=== PATIENT | male | born 1955 | race Caucasian/White ===

== ENCOUNTER 2023-07-28 11:08 | Outpatient (OUT) | payer MEDICARE, BC, SELFPAY ==
[2023-07-28 12:27] LABS: Prostate Specific Antigen Dx 1.49 ng/mL (<=4.00)
== END 2023-07-28 11:09 | disposition home or self-care (01) ==
LOC: LAB 11:11
PROVIDERS: PCP Family Medicine; Visit Provider Urology
DX: N40.1 Benign prostatic hyperplasia with lower urinary tract symptoms (principal); N41.9 Inflammatory disease of prostate, unspecified; R31.21 Asymptomatic microscopic hematuria
CPT/HCPCS: 36415; 84153

== ENCOUNTER 2023-09-22 07:59 | Outpatient (OUT) | payer MEDICARE, BC, SELFPAY ==
--- OUTSIDE RECORDS SUMMARY | 2023-09-22 08:05 | XMS_ITS | CCD ---
Author Organization [facility] [place] [facility] STE[employer] [facility] Care Team Providers Care Counseling Psychologist Name Role Phone Unavailable Primary Care Provider UnavailRODGER Howell Attending Unavailable Gerald Molina Unavailable KIMI CHEN Primary Care Physician FIFI, DR DANTE Hodge Admitting Unavailable FIFI, DR DANTE Hodge Attending Unavailable GUSTAVO, DR BOLDEN Primary Care Unavailable FIFI, DR DANTE Hodge Consulting Unavailable MISC, DR DEVRIES Admitting Unavailable MISC, DR DEVRIES Attending Unavailable GERALD MOLINA Primary Care Unavailable GUSTAVO, DR BOLDEN Consulting Unavailable SEAN GIMENEZ Consulting Unavailable GERALD MOLINA Consulting Unavailable BREEZY, DR IVETT Reyes Admitting Unavailable HEMMER, DR IVETT Reyes Attending Unavailable GERALD MOLINA Primary Care Unavailable HEMMER, DR IVETT Reyes Consulting Unavailable ANAHI SHORT Admitting Unavailable ANAHI SHORT Attending Unavailable GUSTAVO, DR BOLDEN Primary Care Unavailable CANDELARIA LOPEZ Consulting UnavailSean Gerber Consulting Unavailable Sebas Locke Unavailable Dante CALIX Attending Unavailable Dante CALIX Attending Unavailable KIMI CHEN Attending Unavailable RICHY CASTANEDA Attending Unavailable MARIAN MEHTA Attending Unavailable KIMI CHEN Attending Unavailable Allergies Allergy Classification Reported Allergen(s) Allergy Type Date of Onset Reaction(s) Facility (9 sources) predniSONE; Translations: [prednisone] Drug Allergy 2 GI Upset, Gastroesophageal reflux disease (disorder) [facility] Medications Current Medications Medication Drug Class(es) Dates Sig (Normalized) Sig (Original) aspirin 81 mg oral tablet (1 source) Platelet Aggregation Inhibitor, Nonsteroidal Anti-inflammatory Drug Start: 12-04-2018 take 1 tablet by mouth once daily aspirin 81 mg oral tablet 81 mg = 1 tab(s), Oral, Daily Start Date: 12/04/18 Status: Ordered atorvastatin 40 mg oral tablet (7 sources) HMG-CoA Reductase Inhibitor Start: 11-02-2021 atorvastatin 40 mg Tab Refills(s) 0 Start Date: 07/25/22 Status: Ordered Comment on above: Take 40 mg by mouth once daily. B-12 (2 sources) Start: 12-04-2018 B-12 Start Date: 12/04/18 Status: Ordered ciprofloxacin 500 mg oral tablet (1 source) Quinolone Antimicrobial Start: 11-13-2019 Cipro 500 mg Tab See Instructions, Take 1 tab day prior to procedure and 1 tab day of procdure - afterwards, # 2 tab(s), Refills(s) 0, Pharmacy: [facility]/pharmacy #[id number], 174, cm, 10/31/19 15:48:00 EDT, Height/Length Dosing, 77.5, kg, 10/31/19 15:48:00 EDT, Weight Dosing Start Date: 11/13/19 Status: Ordered Folic Acid (8 sources) Start: 12-04-2018 folic acid folic acid Start Date: 12/04/18 Status: Ordered take 1 tablet by mouth every oth er day Folic Acid 800 MCG 1 tablet Orally EVERY OTHER DAY Active take 1 tablet by mouth every oth er day Folic Acid 800 MCG 1 tablet Orally EVERY OTHER DAY Active take 1 capsule by mouth once jean ly folic acid 0.8 mg cap Take 1 capsule by mouth once daily. 0 Active Comment on above: Take 1 capsule by mo [facility] once daily. gabapentin 100 mg oral capsule (8 sources) Anti-epileptic Agent Start: 12-05-19 take 100 mg by mouth three times daily gabapentin 100 mg, Oral, TID Start Date: 12/04/18 Status: Ordered Comment on above: Take 100 mg by mouth three times daily. hydroCHLOROthiazide / Lisinopril (8 sources) Thiazide Diuretic, Angiotensin Converting Enzyme Inhibitor Start: 11-12-19 hydrochlorothiazid e-lisinopril 12.5 mg-10 mg oral tablet 1 tab(s), Oral, Refill(s) 0 Start Date: 11/12/19 Status: Ordered take 0.5 tablet by m outh once daily Lisinopril-hydroCHLOROthiazide 10-12.5 M G 1/2 TABLET Orally Once a day Active take 0.5 tablet by m outh once daily LISINOPRIL-HYDROCHLOROTHIAZIDE ORAL Take 10-12.5 mg by mouth once daily. 1/2 tablet 0 Active Comment on above: Take 10-12.5 mg by m outh once daily. 1/2 tablet Multivitamin preparation (5 sources) Multivitamin Act piter SITagliptin 100 mg oral tablet (8 sources) Dipeptidyl Peptidase 4 Inhibitor Start: 9 take 100 mg by mouth once daily Januvia 100 mg, Oral, Daily Start Date: 12/04/18 Status: Ordered Comment on above: Take 100 mg by mouth once daily. tamsulosin hydrochloride 0.4 mg oral capsule (8 sources) alpha-Adrenergic Brenda Start: 4 take 1 capsule by mouth twice daily tamsulosin 0.4 mg Cap 0.4 mg = 1 cap(s), Oral, BID, # 60 cap(s), Refills(s) 11, Pharmacy: [facility]/pharmacy #[id number], 174, cm, 07/25/22 8:56:00 EDT, Height/Length Dosing, 78, kg, 07/25/22 8:56:00 EDT, Weight Dosing Start Date: 05/01/23 Status: Ordered Start: 04-20-2022 take 1 capsule by pr uth twice daily tamsulosin 0.4 mg Cap 0.4 mg = 1 cap(s), Oral, BID, # 60 cap(s), Refills(s) 11, Pharmacy: [facility]/pharmacy #[id number], 174, cm, 06/29/21 8:28:00 EDT, Height/Length Dosing, 78.3, kg, 06/29/21 8:28:00 EDT, Weight Dosing Start Date: 04/20/22 Status: Ordered take 0.8 mg by mouth once daily tamsulosin (FLOMAX) 0.4 mg Take 0.8 mg by mouth once daily. 0 Active Comment on above: Take 0.8 mg by mouth once daily. vitamin B12 (5 sources) Vitamin B12 Vitamin B 12 MAGGIE RY OTHER DAY Active Completed/Discontinued Medications Medication Drug Class(es) Dates Sig (Normalized) Sig (Original) bismuth subsalicylate (1 source) Bismuth bismuth subsalic ylate (PEPTO-BISMOL ORAL) Take by mouth as needed. 0 Active Comment on above: Take by mouth as nee ded. Calcium Carbonate (6 sources) Tums PRN Not-Taking/PRN Tums PRN Active calcium carbonat e (ANTACID EXT STR, CALCIUM CARB, ORAL) Take 1 tablet by mouth as needed. 0 Active Comment on above: Take 1 tablet by enrrique th as needed. famotidine 10 mg oral tablet (1 source) Histamine-2 Receptor Antagonist take 1 tablet by mouth every twelve hours as needed famotidine (PEPCID AC) 10 mg tablet Take 10 mg by mouth twice daily as needed. 0 Active Comment on above: Take 10 mg by mouth twice daily as needed. mecobalamin (1 source) Start: 9 take 1 tablet by mouth once daily mecobalamin (B12 ACTIVE ORAL) Take 1 tablet by mouth once daily. 0 12/04/2018 Active Comment on above: Take 1 tablet by enrrique th once daily. multivitamin,ther and minerals (MEN'S MULTIPLUS ORAL) (1 source) take 1 tablet by mouth once daily multivitamin,ther and minerals (MEN'S MULTIPLUS ORAL) Take 1 tablet by mouth once daily. 0 Active Comment on above: Take 1 tablet by enrrique th once daily. pantoprazole 40 mg delayed release oral tablet (8 sources) Proton Pump Inhibitor Start: 9 take 2 tablets by mouth once daily pantoprazole DR (PROTONIX) 40 mg tablet Take 80 mg by mouth once daily. 0 12/04/2018 Active Start: 12-04-2018 take 40 mg by mouth once daily pantoprazole 40 mg, Oral, Daily Start Date: 12/04/18 Status: Ordered take 1 tablet by enrrique th every twelve hours Pantoprazole Sodium 40 MG 1 tablet Orally twice a day for 90 days Active Comment on above: Take 80 mg by mouth once daily. Problems Active Problems Problem Classification Problem Date Documented Date Episodic/Chronic Abdominal pain (9 sources) Epigastric pain; Translations: [Inguinal pain] Onset: 01-06-2022 Episodic Administrative/socia l admission (1 source) Counseling procedure with explicit context; Translations: [Dietary counseling and surveillance] Episodic Diabetes mellitus without complication (1 source) Type 2 diabetes mellitus without complication; Translations: [Type 2 diabetes mellitus without complications] Chronic Diabetes mellitus without complication (2 sources) Prediabetes 12-04-2018 Episodic Epilepsy; convulsions (2 sources) Epilepsy 12-04-2018 Chronic Esophageal disorders (8 sources) Gastroesophageal reflux disease without esophagitis; Translations: [Gastro-esophageal reflux disease without esophagitis] Chronic Gastritis and duodenitis (5 sources) Gastritis; Translations: [Gastritis, unspecified, without bleeding] Episodic Genitourinary symptoms and ill-defined conditions (5 sources) Blood in urine; Translations: [Dysuria] Onset: 08-01-2023 12-04-2018 Episodic Hyperplasia of prostate (7 sources) Benign prostatic hypertrophy with outflow obstruction; Translations: [Benign prostatic hyperplasia with lower urinary tract symptoms] Onset: 07-13-2022 12-04-2018 Chronic Inflammatory conditions of male genital organs (3 sources) Epididymitis; Translations: [Prostatitis] 07-22-2019 Episodic Nonspecific chest pain (4 sources) Chest pain, unspecified; Translations: [CHEST PAIN UNSPECIFIED] Onset: 05-24-2022 Episodic Other aftercare (1 source) Long-term current use of oral hypoglycemic medication; Translations: [[facility] (current) use of oral hypoglycemic drugs] Episodic Other aftercare (1 source) [facility] (current) use of aspirin; Translations: [[facility] CURRENT USE OF ASPIRIN] Onset: 05-25-2022 Episodic Other aftercare (1 source) Other [place] (current[facility] drug therapy; Translations: [OTH HALF-WAY CURRENT DRUG THERAPY] Onset: 05-25-2022 Episodic Other disorders of stomach and duodenum (5 sources) Indigestion; Translations: [Functional dyspepsia] Episodic Other lower respiratory disease (1 source) Shortness of breath; Translations: [SHORTNESS OF BREATH] Onset: 05-25-2022 Episodic Other male genital disorders (1 source) H/O: male genital disorder; Translations: [Personal history of other diseases of male genital organs] Onset: 08-01-2023 Episodic Other male genital disorders (1 source) History of prostatitis 08-01-2023 Episodic Other screening for suspected conditions (not mental disorders or infectious disease) (2 sources) Raised prostate specific antigen 12-04-2018 Episodic Screening and history of mental health and substance abuse codes (1 source) Personal history of nicotine dependence; Translations: [PERSONAL HISTORY OF NICOTINE DEPEND] Onset: 05-25-2022 Episodic Unclassified (2 sources) Drug therapy finding 07-22-2019 Unclassified (1 source) PERSONAL HISTORY OF COVID-19; Translations: [PERSONAL HISTORY OF COVID-19] Onset: 05-25-2022 Unclassified (3 sources) CONTACT W/AND (SUSP) EXPOS COVID-19; Translations: [CONTACT W/AND (SUSP) EXPOS COVID-19] Onset: 04-06-2022 Unclassified (1 source) ACUTE COUGH; Translations: [ACUTE COUGH] Onset: 04-06-2022 Unclassified (1 source) Asymptomatic microscopic hematuria 07-25-2022 Past or Other Problems Problem Classification Problem Date Documented Da te Episodic/Chronic Nausea and vomiting (2 sources) Vomiting, unspecified; Translations: [VOMITING UNSPECIFIED] Onset: 01-10-2022 Episodic Other disorders of stomach and duodenum (2 sources) Functional dyspepsia; Translations: [FUNCTIONAL DYSPEPSIA] Onset: 01-10-2022 Episodic Unclassified (1 source) CONTACT W/AND (SUSP) EXPOS COVID-19; Translations: [CONTACT W/AND (SUSP) EXPOS COVID-19] Onset: 04-05-2022 Results Test Name Value Interpretation Reference Range Facility Ambulatory Visit Summaryon 0 08-01-2023 Ambulatory Visit Summary HONEY RAYMOND :1955 Visit Date:08/01/2023 Ambulatory Visit Instructions Your Diagnosis BPH with obstruction/lower urinary tract symptoms History of prostatitis Asymptomatic microscopic hematuria Your Care Team Attending Physician - Dante CALIX MD Primary Care Physician - KIMI CHEN MD This Is Your Medications List tamsulosin (tamsulosin 0.4 mg Cap) Contact prescribing physician if questions or concerns Non-Formulary Medication (folic acid) atorvastatin (atorvastatin 40 mg Tab) cyanocobalamin (B-12) gabapentin hydrochlorothiazide-natividad nopril (hydrochlorothiazide-lis inopril 12.5 mg-10 mg oral tablet) pantoprazole sitagliptin (Januvia) Procedures Performed Bilateral segmental vasectomy and ligation, EGD - Esophagogastroduodenosco py. Discharge Vitals Temperature (Temporal Artery) 36 ?C Heart Rate (Peripheral) 74 Respiratory Rate 18 Blood Pressure 130/70 Height 174 cm Height 69 in Weight 77.7 kg Weight 170.94 lb BMI 25.66 What to do next Scheduled Follow-Up Appointments Monday 8:00 AM EDT With: FIFI MCGUIRE, Dante Hodge Where: [facility] Sheryl Mccarthy [facility] Lab Reportson 08-01-2023 Lab Reports [id number] Normal [facility] Patient Educationon 08-01-19 Patient Education Urology Benign Prostatic Hyperplasia Benign prostatic hyperplasia (BPH) is an enlarged prostate gland that is caused by the normal aging process. The prostate may get bigger as a man gets older. The condition is not caused by cancer. The prostate is a walnut-sized gland that is involved in the production of semen. It is located in front of the rectum and below the bladder. The bladder stores urine. The urethra carries stored urine out of the body. An enlarged prostate can press on the urethra. This can make it harder to pass urine. The buildup of urine in the bladder can cause infection. Back pressure and infection may progress to bladder damage and kidney (renal) failure. What are the causes? This condition is part of the normal aging process. However, not all men develop problems from this condition. If the prostate enlarges away from the urethra, urine flow will not be blocked. If it enlarges toward the urethra and compresses it, there will be problems passing urine. What increases the risk? This condition is more likely to develop in men older than 50 years. What are the signs or symptoms? Symptoms of this condition include: ? Getting up often during the night to urinate. ? Needing to urinate frequently during the day. ? Difficulty starting urine flow. ? Decrease in size and strength of your urine stream. ? Leaking (dribbling) after urinating. ? Inability to pass urine. This needs immediate treatment. ? Inability to completely empty your bladder. ? Pain when you pass urine. This is more common if there is also an infection. ? Urinary tract infection (UTI). How is this diagnosed? This condition is diagnosed based on your medical history, a physical exam, and your symptoms. Tests will also be done, such as: ? A post-void bladder scan. This measures any amount of urine that may remain in your bladder after you finish urinating. ? A digital rectal exam. In a rectal exam, your health care provider checks your prostate by putting a lubricated, gloved finger into your rectum to feel the back of your prostate gland. This exam detects the size of your gland and any abnormal lumps or growths. ? An exam of your urine (urinalysis). ? A prostate specific antigen (PSA) screening. This is a blood test used to screen for prostate cancer. ? An ultrasound. This test uses sound waves to electronically produce a picture of your prostate gland. Your health care provider may refer you to a specialist in kidney and prostate diseases (urologist). How is this treated? Once symptoms begin, your health care provider will monitor your condition (active surveillance or watchful waiting). Treatment for this condition will depend on the severity of your condition. Treatment may include: ? Observation and yearly exams. This may be the only treatment needed if your condition and symptoms are mild. ? Medicines to relieve your symptoms, including: ? Medicines to shrink the prostate. ? Medicines to relax the muscle of the prostate. ? Surgery in severe cases. Surgery may include: ? Prostatectomy. In this procedure, the prostate tissue is removed completely through an open incision or with a laparoscope or robotics. ? Transurethral resection of the prostate (TURP). In this procedure, a tool is inserted through the opening at the tip of the penis (urethra). It is used to cut away tissue of the inner core of the prostate. The pieces are removed through the same opening of the penis. This removes the blockage. ? Transurethral incision (TUIP). In this procedure, small cuts are made in the prostate. This lessens the prostate's pressure on the urethra. ? Transurethral microwave thermotherapy (TUMT). This procedure uses microwaves to create heat. The heat destroys and removes a small amount of prostate tissue. ? Transurethral needle ablation (TUNA). This procedure uses radio frequencies to destroy and remove a small amount of prostate tissue. ? Interstitial laser coagulation (ILC). This procedure uses a laser to destroy and remove a small amount of prostate tissue. ? Transurethral electrovaporization (TUVP). This procedure uses electrodes to destroy and remove a small amount of prostate tissue. ? Prostatic urethral lift. This procedure inserts an implant to push the lobes of the prostate away from the urethra. Follow these instructions at home: ? Take eocm-koh-ujtauxx and prescription medicines only as told by your health care provider. ? Monitor your symptoms for any changes. Contact your health care provider with any changes. ? Avoid drinking large amounts of liquid before going to bed or out in public. ? Avoid or reduce how much caffeine or alcohol you drink. ? Give yourself time when you urinate. ? Keep all follow-up visits. This is important. Contact a health care provider if: ? You have unexplained back pain. ? Your symptoms do not get better with treatment. ? You develop side effects from the medicine (more content not included)... Normal [facility] Urology Office/Clinic Noteon 08-01-2023 Urology Office/Clinic Note Chief Complaint 1 year follow up w/ PSA HPI Staff 1 year follow up w/PSA Previous DX: BPH, Dysuria, Groin Pain, Hematuria. *Flomax 0.4mg BID PSA 12/06/19 - 1.43 06/01/21 - 1.68 07/13/22 - 1.37 07/28/23 - 1.49 Dysuria: denies pain and burning Incomplete bladder emptying: denies Hematuria: denies visible blood Frequency: denies Urgency: denies Nocturia: denies Stream: denies hesitancy Leaking: denies Post void dripping: denies Wearing pads/ Depends: denies Urge incontinence: denies Stress incontinence: denies Incontinence without Sensory Awareness: denies Abdominal pain: denies Flank pain: denies Sexual complaints: _ History of Present Illness Tests reviewed: reviewed UA and PSA. I have reviewed the previous health record information and history for this patient from Dr. Calix. I have reviewed and verified the staff HPI to be accurate for this encounter. There have been no associated fever, chills, flank pain, or blood in the urine. Denies any urinary infections since last encounter. Review of Systems PHQ Score Initial Depression Screen Score: 0 SCORE ROS - Provider Constitutional: denies weight loss, denies hot flashes. Eyes: denies eye problems. Gastrointestinal: denies nausea, denies vomiting. Cardiovascular: denies chest pain or angina. Integumentary: no dryness Musculoskeletal: denies musculoskeletal symptoms. ENMT: denies otolaryngeal symptoms. Respiratory: no shortness of breath. Heme/Lymph: denies easy bleeding tendency, denies easy bruising tendency. Psychiatric: no confusion, no anxiety. Genitourinary: See HPI. Physical Exam Vitals & Measurements T: 36 ?C(Temporal Artery) HR: 74(Peripheral) RR: 18 BP: 130/70 HT: 69 in HT: 174 cm WT: 77.7 kg WT: 170.94 lb BMI: 25.66 General Appearance: alert, no distress, well nourished, well developed male. Prostate: normal prostate, estimated weight 35 gms, no hard nodule observed. Assessment/Plan Portions of this record may have been created with voice recognition artificial intelligence software, specifically [employer] and or [employer]. Substitutions may have occurred due to the inherent limitations of voice recognition and artificial intelligence software. 1. BPH with obstruction/lower urinary tract symptoms (N40.1: Benign prostatic hyperplasia with lower urinary tract symptoms) PSA: 12/06/19 - 1.43 06/01/21 - 1.68 07/13/22 - 1.37 07/28/23 - 1.49 Slight fluctuation in PSA, but remains stable. Will cont to monitor. Taking Flomax 0.4mg bid. Call for refills. IPSS 9 (10) No changes in urination. No urinary concerns. KULWINDER: 35g, no nodules. -Cont Flomax 0.4mg bid -Cont sx monitoring -PSA in 1 year 2. History of prostatitis (Z87.438: Personal history of other diseases of male genital organs) Flomax increased to bid at the time of suspected infection. Asx currently. UA today neg. 3. Asymptomatic microscopic hematuria (R31.21: Asymptomatic microscopic hematuria) Chronic. UA today neg. Denies visible blood in urine. Pt to call if he ever witnesses gross hematuria. Overall patient is doing well. He is maintained on 0.4 mg p.o. twice daily. He will call when he needs refills. No need for doses changes. He has a history of microscopic blood in the urine but none today on urinalysis. PSA levels remain in the same range. Current level is up a bit from prior check but he was higher in May 2021. I favor a 1 year follow-up and he agrees with that. Call for difficulties prior to next visit Follow-up With When Contact Information FIFI MCGUIRE, Dante Hodge, URL [address] [id number]- Additional Instructions: 1 year w/ PSA Patient Education Benign Prostatic Hyperplasia I, Kristen Hernadez, personally scribed for Dr. Calix on 08/01/2023 08:43:17. . Documentation recorded by the scribe, Kristen Hernadez, accurately reflects the services(s) I performed and decisions made by me. Authenticated by Dr. Calix on 08/01/2023 08:44:16. Problem List/Past Medical History Ongoing Abdominal pain, lower Anticoagulated Asymptomatic microscopic hematuria BPH with obstruction/lower urinary tract symptoms Dysuria Epididymitis Epilepsy Groin pain Hematuria History of prostatitis Prediabetes Prostatitis PSA elevation Historical No qualifying data Procedure/Surgical History Bilateral segmental vasectomy and ligation, EGD - Esophagogastroduodenosco py. Medications atorvastatin 40 mg Tab B-12 folic acid gabapentin, 100 mg, Oral, TID hydrochlorothiazide-natividad nopril 12.5 mg-10 mg oral tablet, 1 tab(s), Oral Januvia, 100 mg, Oral, Daily pantoprazole, 40 mg, Oral, Daily tamsulosin 0.4 mg Cap, 0.4 mg= 1 cap(s), Oral, BID, 11 refills Allergies predniSONE (GERD - Gastro-esophageal reflux disease) Social History Tobacco - Denies Tobacco Use, 10 (more content not included)... Normal [facility] Comment on above: Result Comment: Elec tronically Signed By: Dante CALIX MD\.br\Date and Time Signed: 08/01/23 08:44 EDT\.br\Electronically Co-Signed By: Kristen Hernadez\.br\Date and Time Co-Signed: 08/01/23 08:43 EDT BNPon 05-24-2022 Natriuretic peptide B (Bld) [Mass/Vol] 99.0 pg/mL Normal <=900.0 [facility] Comment on above: Performed By: #### C MP, TSH, HSTROPN, BNP #### [facility] [address] [place] [address] Dr. Brooklyn Santos CBC AUTO DIFFon 05-24-2022 BASO # 0.0 103/ul Normal 0.0-0.1 [facility] Comment on above: Performed By: #### C BC #### [facility] [address] [place] [address] Dr. Brooklyn Santos Basophils/100 WBC (Bld) 0.8 % Normal 0.2-2.0 [facility] Comment on above: Performed By: #### C BC #### [facility] [address] [place] [address] Dr. Brooklyn Santos EO # 0.1 103/ul Normal 0.0-0.7 [facility] Comment on above: Performed By: #### C BC #### [facility] [address] [place] [address] Dr. Brooklyn Santos Eosinophils/100 WBC (Bld) 1.5 % Normal 0.9-7.0 [facility] Comment on above: Performed By: #### C BC #### [facility] [address] [place] [address] Dr. Brooklyn Santos Erythrocyte distribution width (RBC) [Ratio] 12.6 % Normal 11.0-15.0 [facility] Comment on above: Performed By: #### C BC #### [facility] [address] [place] [address] Dr. Brooklyn Santos Hematocrit (Bld) [Volume fraction] 42.2 % Normal 42.0-54.0 [facility] Comment on above: Performed By: #### C BC #### [facility] [address] [place] [address] Dr. Brooklyn Santos Hemoglobin (Bld) [Mass/Vol] 14.1 g/dL Normal 14.0-18.0 [facility] Comment on above: Performed By: #### C BC #### [facility] [address] [place] [address] Dr. Brooklyn Santos IG # 0.01 10e3/ul Normal 0.00-0.03 [facility] Comment on above: Performed By: #### C BC #### [facility] [address] [place] [address] Dr. Brooklyn Santos IG % 0.2 % Normal 0.0-0.5 [facility] Comment on above: Performed By: #### C BC #### [facility] [address] [place] [address] Dr. Brooklyn Santos LYMPH # 2.2 103/ul Normal 1.2-3.8 [facility] Comment on above: Performed By: #### C BC #### [facility] [address] [place] [address] Dr. Brooklyn Santos Lymphocytes/100 WBC (Bld) 40.5 % Normal 20.5-60.0 [facility] Comment on above: Performed By: #### C BC #### [facility] [address] [place] [address] Dr. Brooklyn Santos MANUAL DIFF REQ NO Normal [facility] Comment on above: Performed By: #### C BC #### [facility] [address] [place] [address] Dr. Brooklyn Santos MCH (RBC) [Entitic mass] 32.0 pg Normal 25.9-34.0 [facility] Comment on above: Performed By: #### C BC #### [facility] [address] [place] [address] Dr. Brooklyn Santos MCHC (RBC) [Mass/Vol] 33.4 g/dL Normal 29.9-35.2 [facility] Comment on above: Performed By: #### C BC #### [facility] [address] [place] [address] Dr. Brooklyn Santos MCV (RBC) [Entitic vol] 95.9 fL Critically high 80.0-94.0 [facility] Comment on above: Performed By: #### C BC #### [facility] [address] [place] [address] Dr. Brooklyn Santos MONO # 0.5 103/ul Normal 0.3-0.8 [facility] Comment on above: Performed By: #### C BC #### [facility] [address] [place] [address] Dr. Brooklyn Santos Monocytes/100 WBC (Bld) 10.0 % Normal 1.7-12.0 [facility] Comment on above: Performed By: #### C BC #### [facility] [address] [address] [address] Brooklyn Santos NEUT # 2.5 103/ul Normal 1.4-6.5 [facility] Comment on above: Performed By: #### C BC #### [facility] [address] [address] [address] Brooklyn Santos Neutrophils/100 WBC (Bld) 47.0 % Normal 43.0-75.0 [facility] Comment on above: Performed By: #### C BC #### [facility] [address] [address] [address] Brooklyn Santos Platelet mean volume (Bld) [Entitic vol] 9.4 fL Critically low 9.5-13.5 [facility] Comment on above: Performed By: #### C BC #### [facility] [address] [address] [address] Brooklyn Santos PLT 162 103/ul Normal 150-450 [facility] Comment on above: Performed By: #### C BC #### [facility] [address] [place], [place] [id number] Dr. Brooklyn Santos RBC 4.40 106/ul Critically low 4.70-6.10 [facility] Comment on above: Performed By: #### C BC #### [facility] [address] [place] [address] Dr. Brooklyn Santos WBC 5.3 103/ul Normal 4.0-11.0 [facility] Comment on above: Performed By: #### C BC #### [facility] [address] [id number] Brooklyn Santos D-DIMERon 05-24-2022 D-DIMER 0.21 mg/L FEU Normal <=0.59 [facility] Comment on above: Performed By: #### D DIM ####[facility] [id number] [address]Dr. Brooklyn Santos D-DIMER COMMENTS SEE BELOW Normal [facility] Comment on above: Result Comment: Incr eases in D-Dimer concentration observed with thromboembolic events can be variable due to localization, size, and age of the thrombus. Therefore, a thromboembolic event cannot be diagnosed with certainty on the basis of the reference range. D-Dimers may also be elevated for a variety of disorders including: advanced age, , coronary disease, cancer, liver disease, infection, inflammation, hematoma, DIC, trauma, post-surgery, diabetes, thrombolytic or anticoagulant therapy, stress, and generalized hospitalization. Performed By: #### D DIM ####[facility] [id number] [address]Dr. Brooklyn Santos PROF 14(COMP METB)on 023 Albumin [Mass/Vol] 4.4 g/dL Normal 3.4-5.0 [facility] Comment on above: Performed By: #### C MP, TSH, HSTROPN, BNP #### [facility] [address] [address] [address] Brooklyn Santos Albumin/Globulin [Mass ratio] 1.5 {ratio} Normal [facility] Comment on above: Performed By: #### C MP, TSH, HSTROPN, BNP #### [facility] [address] [address] [address] Brooklyn Santos ALP [Catalytic activity/Vol] 65 U/L Normal 46-116 [facility] Comment on above: Performed By: #### C MP, TSH, HSTROPN, BNP #### [facility] [address] [address] [address] Brooklyn Santos ALT [Catalytic activity/Vol] 38 U/L Normal 16-63 [facility] Comment on above: Performed By: #### C MP, TSH, HSTROPN, BNP #### [facility] [address] [address] [address] Brooklyn Santos Anion gap [Moles/Vol] 8.4 mmol/L Normal [facility] Comment on above: Performed By: #### C MP, TSH, HSTROPN, BNP #### [facility] [address] [address] [address] Brooklyn Santos AST [Catalytic activity/Vol] U/L Critically low 15-37 [facility] Comment on above: Performed By: #### C MP, TSH, HSTROPN, BNP #### [facility] [address] [address] [address] Brooklyn Santos Bilirubin [Mass/Vol] 0.6 mg/dL Normal 0.2-1.0 [facility] Comment on above: Performed By: #### C MP, TSH, HSTROPN, BNP #### [facility] [address] [address] [address] Brooklyn Santos Calcium [Mass/Vol] 9.1 mg/dL Normal 8.5-10.1 [facility] Comment on above: Performed By: #### C MP, TSH, HSTROPN, BNP #### [facility] [address] [place] [address] Dr. Brooklyn Santos Chloride [Moles/Vol] 105 mmol/L Normal 98-107 [facility] Comment on above: Performed By: #### C MP, TSH, HSTROPN, BNP #### [facility] [address] [address] [address] Brooklyn Santos CO2 [Moles/Vol] 30.4 mmol/L Normal 21.0-32.0 [facility] Comment on above: Performed By: #### C MP, TSH, HSTROPN, BNP #### [facility] [address] [place] [address] Dr. Brooklyn Santos Creatinine [Mass/Vol] 0.92 mg/dL Normal 0.70-1.30 [facility] Comment on above: Performed By: #### C MP, TSH, HSTROPN, BNP #### [facility] [address] [place] [address] Dr. Brooklyn Santos EGFR-AF CHINESE >60 Normal >=60 [facility] Comment on above: Performed By: #### C MP, TSH, HSTROPN, BNP #### [facility] [address] [address] [address] Brooklyn Santos EGFR-NON AF CHINESE >60 Normal >=60 [facility] Comment on above: Performed By: #### C MP, TSH, HSTROPN, BNP #### [facility] [address] [place] [address] Dr. Brooklyn Santos Globulin (S) [Mass/Vol] 2.9 g/dL Normal [facility] Comment on above: Performed By: #### C MP, TSH, HSTROPN, BNP #### [facility] [address] [place] [address] Dr. Brooklyn Santos Glucose [Mass/Vol] 96 mg/dL Normal 74-106 [facility] Comment on above: Performed By: #### C MP, TSH, HSTROPN, BNP #### [facility] [address] [place] [address] Dr. Brooklyn Santos Potassium [Moles/Vol] 3.8 mmol/L Normal 3.5-5.1 [facility] Comment on above: Performed By: #### C MP, TSH, HSTROPN, BNP #### [facility] [address] [place] [address] Dr. Brooklyn Santos Protein [Mass/Vol] 7.3 g/dL Normal 6.4-8.2 [facility] Comment on above: Performed By: #### C MP, TSH, HSTROPN, BNP #### [facility] [address] [place] [address] Dr. Brooklyn Santos Sodium [Moles/Vol] 140 mmol/L Normal 136-145 [facility] Comment on above: Performed By: #### C MP, TSH, HSTROPN, BNP #### [facility] [address] [place] [address] Dr. Brooklyn Santos Urea nitrogen [Mass/Vol] 15.0 mg/dL Normal 7.0-18.0 [facility] Comment on above: Performed By: #### C MP, TSH, HSTROPN, BNP #### [facility] [address] [place] [address] Dr. Brooklyn Santos Urea nitrogen/Creatinin e [Mass ratio] 16.3 mg/mg Normal [facility] Comment on above: Performed By: #### C MP, TSH, HSTROPN, BNP #### [facility] [address] [address] [address] Brooklyn Santos PROTIMEon 05-24-2022 INR Coag (PPP) [Relative time] 1.04 {INR} Normal [facility] Comment on above: Performed By: #### P T, PTT ####[facility] [id number] [address]Dr. Brooklyn Santos INR GUIDELINES SEE BELOW Normal [facility] Comment on above: Result Comment: SHANU RED INR: 2.0 - 3.0 CONDITIONS NOT LISTED BELOW 2.5 - 3.5 FOR PROSTHETIC HEART VALVE REPLACEMENT 2.5 - 3.5 RECURRENT THROMBOSIS Performed By: #### P T, PTT ####[facility] [id number] [address]Dr. Brooklyn Santos PT Coag (PPP) [Time] 11.0 s Normal 9.0-11.6 [facility] Comment on above: Performed By: #### P T, PTT ####[facility] [id number] [address]Dr. Brooklyn Santos PTTon 05-24-2022 aPTT Coag (Bld) [Time] 27.5 s Normal 22.3-36.2 [facility] Comment on above: Performed By: #### P T, PTT #### [facility] [address] [address] [address] Brooklyn Santos TROPONIN, HIGH SENSITIVITYon 05-24-2022 HSTROP 6.5 pg/mL Normal 4.0-76.1 [facility] Comment on above: Result Comment: CUT- OFF POINTS HAVE BEEN ESTABLISHED BASED ON THE FOURTH UNIVERSAL DEFINITIONS OF MYOCARDIAL INFARCTION. THE UPPER REFERENCE LIMIT (URL) OF TROPONIN, DEFINED THE 99TH PERCENTILE OF cTnI DISTRIBUTION IN A REFERENCE POPULATION, HAS BEEN CONFIRMED THE DECISION THRESHOLD FOR [place] DIAGNOSIS. Performed By: #### C MP, TSH, HSTROPN, BNP #### [facility] [address] [address] [address] Brooklyn Santos TSHon 05-24-2022 TSH 2.307 uIU/mL Normal 0.358-3.740 The [facility] Comment on above: Performed By: #### C MP, TSH, HSTROPN, BNP #### [facility] [address] [place], [place] [address] Dr. Brooklyn Santos XR CHEST 1 Von 05-24-2022 XR CHEST 1 V EXAMINATION: XR CHES T 1 V HISTORY: Shortness of breath COMPARISON: None. TECHNIQUE: Portable chest FINDINGS: The lung parenchyma is free of consolidation or infiltrate. No pneumothorax or pleural effusion. The cardiac, mediastinal and hilar contours are normal. The visualized osseous structures exhibit no gross abnormality. IMPRESSION: Normal chest x-ray Electronically authenticated by: SEAN FORD Date: 2022-05-24 20:10 Normal [facility] Covid-19 PCR (CVDTB)on 03-08 SARS-CoV-2 (COVID-19) RNA AMBROSIO+probe Ql (Unsp spec) Detected Abnormal NOT DETECTED [facility] Comment on above: Result Comment: This test is not yet approved or cleared by the [place] FDA. When there are no FDA-approved or cleared tests available, and other criteria are met, FDA can make tests available under an emergency access mechanism called an Emergency Use Authorization (EUA). The EUA for this test is supported by the [place] of Health and Human Service's (HHS's) declaration that circumstances exist to justify the emergency use of in vitro diagnostics for the detection and/or diagnosis of the virus that causes COVID-19. This EUA will remain in effect (meaning this test can be used) for the duration of the COVID-19 declaration justifying emergency of IVDs, unless it is terminated or revoked by FDA (after which the test may no longer be used). Performed By: #### C VDTBH #### [facility] [address] [place], [place] [address] Dr. Brooklyn Santos US SINGLE QUAD RT UPPERon US SINGLE QUAD RT UPPER EXAM: US SINGLE QUAD RT UPPER HISTORY: . Epigastric pain . COMPARISON: None. TECHNIQUE: Grayscale and color imaging was performed FINDINGS: Scanning of the liver demonstrates the liver to be normal in size. No masses or biliary dilatation is noted. The gallbladder appears normal with no stones or sludge identified. No gallbladder wall thickening is noted. Common bile duct is normal measuring 6 mm. The pancreas appears normal. Right kidney measures 9.7 x 5.8 x 5.4 cm. No solid renal cortical masses or hydronephrosis is noted. Color-flow is noted. No fluid is noted in the right upper quadrant. IMPRESSION: Normal ultrasound of the right upper quadrant. Electronically authenticated by: SEAN GIMENEZ Date: 2022-01-06 08:20 [facility] Visit ([facility] ) -------- HONEY RAYMOND ([id number]) 1955 M Date Time Provider Department 12/09/21 3:30 PM RODGER GRANADOS During your visit today, we recorded the following information about you: Pulse Blood pressure Weight Height 67/minute 136/88 75.8 kg 1.702 m Rodger Granados APRN.CNP 12/09/2021 10:35 AM Addendum Thank you for seeing me in clinic today. As we discussed, my recommendations are as follows: 1.EGD w/ PATEL 2.stop Protonix 2 weeks prior to procedure 3.can take Pepcid up to 3 days prior to procedure 4.Follow up with physician If you have any questions about the above treatment plan, please do not hesitate to call the office or send me a Azuro message. Rodger Granados APRN.CNP 12/09/2021 1:44 PM Signed Self Referral for an opinion regarding acid reflux. REASON FOR VISIT: acid reflux HPI: Honey Raymond is a 66 year old male who presents for evaluation of acid reflux. He admits to having severe mid epigastric burning that travels into his esophagus for the past year. He presents today for a second opinion as he has already had work-up completed at [facility]. He is currently taking 40 mg of Protonix twice daily without relief of his symptoms. He underwent an EGD on 08/24/2020 that was unremarkable. He also underwent a right upper quadrant ultrasound that revealed a fatty liver. HIDA scan was also completed that was normal. Past Clinical Work-Up: EGD [facility] 08/24/20: Negative pathology ALLERGIES Allergen Reactions Prednisone GI Upset No past medical history on file. No past surgical history on file. No family history on file. Current Outpatient Medications Medication Sig mecobalamin (B12 ACTIVE ORAL) Take 1 tablet by mouth once daily. atorvastatin (LIPITOR) 40 mg tablet Take 40 mg by mouth once daily. gabapentin (NEURONTIN) 100 mg capsule Take 100 mg by mouth three times daily. pantoprazole DR (PROTONIX) 40 mg tablet Take 80 mg by mouth once daily. LISINOPRIL-HYDROCHLOROTH IAZIDE ORAL Take 10-12.5 mg by mouth once daily. 1/2 tablet tamsulosin (FLOMAX) 0.4 mg Take 0.8 mg by mouth once daily. SITagliptin (JANUVIA) 100 mg tablet Take 100 mg by mouth once daily. multivitamin,ther and minerals (MEN'S MULTIPLUS ORAL) Take 1 tablet by mouth once daily. folic acid 0.8 mg cap Take 1 capsule by mouth once daily. bismuth subsalicylate (PEPTO-BISMOL ORAL) Take by mouth as needed. famotidine (PEPCID AC) 10 mg tablet Take 10 mg by mouth twice daily as needed. calcium carbonate (ANTACID EXT STR, CALCIUM CARB, ORAL) Take 1 tablet by mouth as needed. No current facility-administered medications for this visit. I have confirmed and edited, if necessary, the PFSH obtained by others. REVIEW OF SYSTEMS: CONSTITUTIONAL: Negative for unintentional weight loss, malaise or fevers HEENT: Negative for frequent/significant headaches, changes in hearing/vision, nose bleeds or other nasal problems RESPIRATORY: Negative for cough, hemoptysis, wheezing or dyspnea CARDIOVASCULAR: Negative for chest pain, palpitations, syncope or lightheadedness GI: See HPI NEURO: Negative for encephalopathy, tremor or gait abnormality PSYCH: Negative for new changes in mood or affect I have confirmed and edited, if necessary, the PFSH obtained by others. PHYSICAL EXAM: BP 136/88 (BP Site: Right Arm, BP Position: Sitting, BP Cuff Size: Regular Adult) Pulse 67 Ht 170.2 cm (5' 7 ) Wt 75.8 kg (167 lb) BMI 26.16 kg/m? Gen: Comfortable in NAD Head: Normocephalic, atraumatic Skin: No jaundice, rashes or skin lesions Eyes: Sclera anicteric, conjunctiva pink Heart: RRR Lungs: CTAB Abd: Soft, non-distended, non-tender, bowel sounds present, no palpable masses or organomegaly Rectal Exam: Examination deferred by patient Neuro: Alert and oriented, no tremor or gross focal motor deficits Psych: Congruent mood and affect, appropriate insight and judgement ASSESSMENT/PLAN: Mr. Raymond is a 66 year old male with a history of BPH that presents for GERD. He admits to having severe mid epigastric burning that travels into his esophagus for the past year. He presents today for a second opinion as he has already had work-up completed at [facility]. He is currently taking 40 mg of Protonix twice daily without relief of his symptoms. He underwent an EGD on 08/24/2020 that was unremarkable. He also underwent a right upper quadrant ultrasound that revealed a fatty liver. HIDA scan was also completed that was normal. I recommend an EGD with Patel placement off PPI for further evaluation of his persistent reflux. Procedure/risks were discussed with the patient in great detail including the risk of sedation and bleeding. Patient is agreeable with proceeding and instructed to call with any questions or concerns. 1. Gastroesophageal reflux disease without esophagitis - ICD9: 530.81, ICD10: K21.9 - (more content not included)... Normal [facility] HISTORY PHYSICALon 2 HISTORY PHYSICAL HNO ID: [id number] Author: Rodger Granados APRN.MANAGER GOLF Service: ? Author Type: Nurse Practitioner Type: HANDP Filed: 12/09/2021 1:44 PM Note Text: Self Referral for an opinion regarding acid reflux. REASON FOR VISIT: acid reflux HPI: Honey Raymond is a 66 year old male who presents for evaluation of acid reflux. He admits to having severe mid epigastric burning that travels into his esophagus for the past year. He presents today for a second opinion as he has already had work-up completed at [facility]. He is currently taking 40 mg of Protonix twice daily without relief of his symptoms. He underwent an EGD on 08/24/2020 that was unremarkable. He also underwent a right upper quadrant ultrasound that revealed a fatty liver. HIDA scan was also completed that was normal. Past Clinical Work-Up: [facility] 08/24/20: Negative pathology ALLERGIES Allergen Reactions Prednisone GI Upset No past medical history on file. No past surgical history on file. No family history on file. Current Outpatient Medications Medication Sig mecobalamin (B12 ACTIVE ORAL) Take 1 tablet by mouth once daily. atorvastatin (LIPITOR) 40 mg tablet Take 40 mg by mouth once daily. gabapentin (NEURONTIN) 100 mg capsule Take 100 mg by mouth three times daily. pantoprazole DR (PROTONIX) 40 mg tablet Take 80 mg by mouth once daily. LISINOPRIL-HYDROCHLOROTH IAZIDE ORAL Take 10-12.5 mg by mouth once daily. 1/2 tablet tamsulosin (FLOMAX) 0.4 mg Take 0.8 mg by mouth once daily. SITagliptin (JANUVIA) 100 mg tablet Take 100 mg by mouth once daily. multivitamin,ther and minerals (MEN'S MULTIPLUS ORAL) Take 1 tablet by mouth once daily. folic acid 0.8 mg cap Take 1 capsule by mouth once daily. bismuth subsalicylate (PEPTO-BISMOL ORAL) Take by mouth as needed. famotidine (PEPCID AC) 10 mg tablet Take 10 mg by mouth twice daily as needed. calcium carbonate (ANTACID EXT STR, CALCIUM CARB, ORAL) Take 1 tablet by mouth as needed. No current facility-administered medications for this visit. I have confirmed and edited, if necessary, the PFSH obtained by others. REVIEW OF SYSTEMS: CONSTITUTIONAL: Negative for unintentional weight loss, malaise or fevers HEENT: Negative for frequent/significant headaches, changes in hearing/vision, nose bleeds or other nasal problems RESPIRATORY: Negative for cough, hemoptysis, wheezing or dyspnea CARDIOVASCULAR: Negative for chest pain, palpitations, syncope or lightheadedness GI: See HPI NEURO: Negative for encephalopathy, tremor or gait abnormality PSYCH: Negative for new changes in mood or affect I have confirmed and edited, if necessary, the PFSH obtained by others. PHYSICAL EXAM: BP 136/88 (BP Site: Right Arm, BP Position: Sitting, BP Cuff Size: Regular Adult) Pulse 67 Ht 170.2 cm (5' 7 ) Wt 75.8 kg (167 lb) BMI 26.16 kg/m? Gen: Comfortable in NAD Head: Normocephalic, atraumatic Skin: No jaundice, rashes or skin lesions Eyes: Sclera anicteric, conjunctiva pink Heart: RRR Lungs: CTAB Abd: Soft, non-distended, non-tender, bowel sounds present, no palpable masses or organomegaly Rectal Exam: Examination deferred by patient Neuro: Alert and oriented, no tremor or gross focal motor deficits Psych: Congruent mood and affect, appropriate insight and judgement ASSESSMENT/PLAN: Mr. Raymond is a 66 year old male with a history of BPH that presents for GERD. He admits to having severe mid epigastric burning that travels into his esophagus for the past year. He presents today for a second opinion as he has already had work-up completed at [facility]. He is currently taking 40 mg of Protonix twice daily without relief of his symptoms. He underwent an EGD on 08/24/2020 that was unremarkable. He also underwent a right upper quadrant ultrasound that revealed a fatty liver. HIDA scan was also completed that was normal. I recommend an EGD with Patel placement off PPI for further evaluation of his persistent reflux. Procedure/risks were discussed with the patient in great detail including the risk of sedation and bleeding. Patient is agreeable with proceeding and instructed to call with any questions or concerns. 1. Gastroesophageal reflux disease without esophagitis - ICD9: 530.81, ICD10: K21.9 - Discussed lifestyle modifications including losing weight, limiting caffeine, no meals three hours before sleep, and head of bed elevation - EGD - THERAPEUTIC, EUS, OR TUBE INTERVENTIONS This note was dictated using ComCam speech recognition software and may contain some errors that were a result of the program not accurately transcribing what was dictated. Rodger Granados APRN.MANAGER GOLF Normal [facility] Complete Blood Count with Au to Diffon 03-11-2021 Basophils (Bld) [#/Vol] 0.04 10*3/uL Normal 0.00-0.20 [facility] Comment on above: Performed By: #### C BCAD, CMP #### [facility] [address] [place], [place] [id number] Basophils/100 WBC (Bld) 0.8 % Normal [facility] Comment on above: Performed By: #### C BCAD, CMP #### [facility] [address] [place], [place] [id number] Eosinophils (Bld) [#/Vol] 0.07 10*3/uL Normal 0.02-0.50 [facility] Comment on above: Performed By: #### C CARLY, CMP #### [facility] [address] [place], [place] [id number] Eosinophils/100 WBC (Bld) 1.4 % Normal [facility] Comment on above: Performed By: #### C CARLY, CMP #### [facility] [address] [place], [place] [id number] Erythrocyte distribution width (RBC) [Ratio] 12.2 % Normal 11.0-15.0 [facility] Comment on above: Performed By: #### C CARLY, CMP #### [facility] [address] [place], [place] [id number] Hematocrit (Bld) [Volume fraction] 46.2 % Normal 38.5-50.0 [facility] Comment on above: Performed By: #### C CARLY, CMP #### [facility] [address] [place], [place] [id number] Hemoglobin (Bld) [Mass/Vol] 15.2 g/dL Normal 13.0-17.1 [facility] Comment on above: Performed By: #### C CARLY, CMP #### [facility] [address] [place], [place] [id number] Lymphocytes (Bld) [#/Vol] 1.5 10*3/uL Normal 0.9-3.9 [facility] Comment on above: Performed By: #### C CARLY, CMP #### [facility] [address] [place], [place] [id number] Lymphocytes/100 WBC (Bld) 30.0 % [facility] Specialist Comment on above: Performed By: #### C CARLY, CMP #### [facility] [address], [place] [id number] MCH (RBC) [Entitic mass] 32.3 pg Normal 27.0-33.0 [facility] Specialist Comment on above: Performed By: #### C CARLY, CMP #### [facility] [address], [place] [id number] MCHC (RBC) [Mass/Vol] 32.9 g/dL Normal 32.0-36.0 [facility] Specialist Comment on above: Performed By: #### C CARLY, CMP #### [facility] [address], [place] [id number] MCV (RBC) [Entitic vol] 98 fL Normal 80-100 [facility] Specialist Comment on above: Performed By: #### C CARLY, CMP #### [facility] [address], [place] [id number] Monocytes (Bld) [#/Vol] 0.4 10*3/uL Normal 0.2-0.9 [facility] Specialist Comment on above: Performed By: #### C CARLY, CMP #### [facility] [address], [place] [id number] Monocytes/100 WBC (Bld) 7.5 % Normal [facility] Specialist Comment on above: Performed By: #### C CARLY, CMP #### [facility] [address], [place] [id number] Neutrophils (Bld) [#/Vol] 3.0 10*3/uL Normal 1.5-7.8 [facility] Specialist Comment on above: Performed By: #### Crystal CARROLL, CMP #### [facility] [address], [place] [id number] Neutrophils/100 WBC (Bld) 60.1 % Normal [facility] Specialist Comment on above: Performed By: #### Crystal CARROLL, CMP #### [facility] [address], [place] [id number] Platelet mean volume (Bld) [Entitic vol] 9.60 fL Normal 7.50-12.50 [facility] Specialist Comment on above: Performed By: #### C CARLY, CMP #### [facility] [address], [place] [id number] Platelets (Bld) [#/Vol] 177 10*3/uL Normal 140-400 [facility] Primary Therapist Comment on above: Performed By: #### Crystal CARROLL, CMP #### [facility] [address], [place] [id number] RBC (Bld) [#/Vol] 4.70 10*6/uL Normal 4.20-5.80 [facility] Primary Therapist Comment on above: Performed By: #### C BCAD, CMP #### [facility] [address], [place] [id number] RDW-SD 44.6 fL Normal 37.0-50.0 [facility] Primary Therapist Comment on above: Performed By: #### C BCAD, CMP #### [facility] [address], [place] [id number] WBC (Bld) [#/Vol] 5.0 10*3/uL Normal 3.8-11.0 [place] [facility] Primary Therapist Comment on above: Performed By: #### C BCAD, CMP #### [facility] [address], [place] [id number] Comprehensive Metabolic Pane navneet 03-11-2021 Albumin [Mass/Vol] 4.9 g/dL Normal 3.6-5.1 [facility] Primary Therapist Comment on above: Performed By: #### C BCAD, CMP #### [facility] [address], [place] [id number] Albumin/Globulin [Mass ratio] 2.3 {ratio} Normal 1.0-2.5 [facility] Specialist Comment on above: Performed By: #### C BCAD, CMP #### [facility] [address], [place] [id number] ALP [Catalytic activity/Vol] 51 U/L Normal 40-129 [facility] Primary Therapist Comment on above: Performed By: #### C BCAD, CMP #### [facility] [address], [place] [id number] ALT [Catalytic activity/Vol] 28 U/L Normal 9-46 [facility] Specialist Comment on above: Result Comment: 02/03 Female reference range changed. Performed By: #### C BCAD, CMP #### [facility] [address], [place] [id number] Anion gap [Moles/Vol] 18 mmol/L Normal 12-20 [facility] Primary Therapist Comment on above: Result Comment: Effe ctive 03/11/2019 reference range changed. Performed By: #### C BCAD, CMP #### [facility] [address], [place] [id number] AST [Catalytic activity/Vol] 21 U/L Normal 10-40 [facility] Comment on above: Performed By: #### C BCAD, CMP #### [facility] [address], [place] [id number] Bilirubin [Mass/Vol] 0.36 mg/dL Normal 0.30-1.20 [facility] Comment on above: Performed By: #### C BCAD, CMP #### [facility] [address], [place] [id number] BUN/CREA 22 Ratio Normal 6-22 [facility] Comment on above: Performed By: #### C BCAD, CMP #### [facility] [address], [place] [id number] Calcium [Mass/Vol] 10.0 mg/dL Normal 8.6-10.2 [facility] Comment on above: Performed By: #### C BCAD, CMP #### [facility] [address], [place] [id number] Chloride [Moles/Vol] 101 mmol/L Normal 98-107 [facility] Comment on above: Performed By: #### C BCAD, CMP #### [facility] [address], [place] [id number] CO2 [Moles/Vol] 25 mmol/L Normal 20-31 [facility] Comment on above: Performed By: #### C BCAD, CMP #### [facility] [address], [place] [id number] Creatinine [Mass/Vol] 1.0 mg/dL Normal 0.7-1.4 [facility] Comment on above: Performed By: #### C BCAD, CMP #### [facility] [address], [place] [id number] eGFRAA 91 mL/min/1.73m2 Normal >60 [facility] Specialist Comment on above: Performed By: #### C BCAD, CMP #### [facility] [address], [place] [id number] eGFRNAA 75 mL/min/1.73m2 Normal >60 [facility] Primary Therapist Comment on above: Performed By: #### C BCAD, CMP #### [facility] [address], [place] [id number] Globulin (S) [Mass/Vol] 2.1 g/dL Normal 1.9-3.7 [facility] Primary Therapist Comment on above: Performed By: #### C BCAD, CMP #### [facility] [address], [place] [id number] Glucose [Mass/Vol] 195 mg/dL High 65-99 [facility] Primary Therapist Comment on above: Result Comment: For FASTING Glucose --- ADA reference ranges: Normal 65-99 mg/dl Prediabetes 100-125 Diabetes >/= 126 Performed By: #### C BCAD, CMP #### [facility] [address], [place] [id number] Potassium [Moles/Vol] 4.5 mmol/L Normal 3.5-5.5 [facility] Primary Therapist Comment on above: Performed By: #### C BCAD, CMP #### [facility] [address], [place] [id number] Protein [Mass/Vol] 7.0 g/dL Normal 6.1-8.1 [facility] [place] Primary Therapist Comment on above: Performed By: #### C BCAD, CMP #### [facility] [address], [place] [id number] Sodium [Moles/Vol] 140 mmol/L Normal 135-146 [facility] [place] Primary Therapist Comment on above: Performed By: #### C BCAD, CMP #### [facility] [address], [place] [id number] Urea nitrogen [Mass/Vol] 22 mg/dL Normal 7-25 [facility] Primary Therapist Comment on above: Performed By: #### C BCAD, CMP #### [facility] [address], [place] [id number] Glucose Poct Glucometerson 0 08-24-2020 Commemt1 Glu2: Cleaned Meter Normal [facility] Comment on above: Result Comment: PERF ORMED BY: [facility] [address] [place] [address] PATHOLOGIST WALLPAPER SCRAPER MELODIE HENRY M.D. Performed By: #### G JOSE LUIS #### Point of Care testing , Glucose [Mass/Vol] 98 mg/dL [facility] Comment on above: Result Comment: [place] Glucose Reference Range is dependent on time and content of last meal. Glucose of more than 200 mg/dL in a nonstressed, ambulatory subject supports the diagnosis of Diabetes Mellitus. Performed By: #### G JOSE LUIS #### Point of Care testing , Navneet 08-24-2020 L ---- Specimen: [id number] Received: 08/24/20 Status: LIVIA Guajardo Num: [id number] Spec Type: Surgical Subm Dr: Sean Cooper Jr, DO Tissues: A Stomach - Biopsy/Polyp (ANTRUM BX) Procedures: HE Stain/2, Gross/Micro L4 Patient Age/Sex Location Account Attending Physician Honey Raymond/Eric [id number] Sean Cooper Jr, DO SPEC NUM: [id number] RECD: 08/24/20 STATUS: LIVIA GUAJARDO NUM: [id number] YONG: 08/24/20 DR: Sean Cooper Jr, DO ENTERED: 08/24/[address] [facility] [address]: SPEC TYPE: Surgical DEPT: S ORDERED: HE Stain/2, Gross/Micro L4 ORDERED: HE Stain/2, Gross/Micro L4 Pathological Diagnosis Stomach, antrum, biopsy: - Mild chronic inactive gastritis - Negative for H. pylori microorganisms Clinical Information GERD, screening Gross Description Received in formalin labeled with the patient's name, number and antrum biopsy rule out gastritis and H. pylori by IHC is a 0.4 cm cook tissue fragment. Entirely submitted in one cassette labeled A1. (SM/JS) Microscopic Description Two glass slides with H E stained material have been examined. The microscopic findings support the above pathologic diagnosis. Immunohistochemical stain for H. pylori, with appropriate controls, has been requested and examined after reviewing H E sections. The H. pylori stain is negative for microorganisms. [id number] ANALYTE SPECIFIC REAGENT (ASR) DISCLAIMER: The use of one or more reagents in the above tests is regulated as an analyte specific reagent (ASR). The performance characteristics were determined by the Laboratory of [facility]. Immunohistochemistry Specimen: [id number] Received: 08/24/20 Status: LIVIA Quintanillazuleima Num: [id number] Spec Type: Surgical Subm Dr: Sean Cooper Jr, Tissues: A Stomach - Biopsy/Polyp (ANTRUM BX) Procedures: HE Stain/2, Gross/Micro L4 Patient: Honey Raymond [id number] (Continued) Specimen: [id number] Received: 08/24/20 (Continued) Microscopic Description (Continued) Signed (signature on file) Melodie Henry MD 08/25/20 1647 Specimen: [id number] Received: 08/24/20 Status: LIVIA Guajardo Num: [id number] Spec Type: Surgical Subm Dr: Sean Cooper Jr, DO Tissues: A Stomach - Biopsy/Polyp (ANTRUM BX) Procedures: HE Stain/2, Gross/Micro L4 Patient: Honey Raymond [id number] (Continued) Specimen: [id number] Received: 08/24/20 (Continued) Microscopic Description (Continued) assays have not been validated on decalcified tissue. Results should be interpreted with caution given the possibility of false negative results on decalcified specimens. They have not been cleared by the [place] Food and Drug Administration. The FDA has determined that such clearance or approval is not necessary. Specimen: [id number] Received: 08/24/20 Status: LIVIA Guajardo Num: [id number] Spec Type: Surgical Subm Dr: Sean Cooper Jr, DO Tissues: A Stomach - Biopsy/Polyp (ANTRUM BX) Procedures: HE Stain/2, Gross/Micro L4 Patient: Honey Raymond [id number] (Continued) Signed (signature on file) Melodie Henry MD 08/25/[address] [place] [address] Vital Signs Date Time Vital Sign Value Performing Clinician Facility 08-01-2023 08:35-0400 Body temperature 96.8 [degF] [facility] 08-01-2023 08:35-0400 Diastolic blood pressure 70 mm[Hg] [facility] 08-01-2023 08:35-0400 Heart rate 74 /min [facility] 08-01-2023 08:35-0400 Respiratory rate 18 /min [facility] 08-01-2023 08:35-0400 Systolic blood pressure 130 mm[Hg] [facility] 02-23-2023 10:00-0500 Body height 170.18 cm Sebas Duncan [facility] Other 02-23-2023 10:00-0500 Body mass index (BMI) [Ratio] 25.84 kg/m2 Sebas Scovanner Other [facility] Other 02-23-2023 10:00-0500 Body weight 74.84 kg Sebas Scovanner Other [facility] Other 02-23-2023 10:00-0500 Diastolic blood pressure 68 mm[Hg] Sebas Scovanner Other [facility] Other 02-23-2023 10:00-0500 Systolic blood pressure 132 mm[Hg] Sebas Scovanner Other [facility] Other 01-04-2022 11:45-0400 Body height 170.18 cm Gerald Molina Other [facility] Other 01-04-2022 11:45-0400 Body mass index (BMI) [Ratio] 25.68 kg/m2 Gerald Tavarezy Other [facility] Other 01-04-2022 11:45-0400 Body weight 74.39 kg Gerald Molina Other [facility] Other 01-04-2022 11:45-0400 Diastolic blood pressure 80 mm[Hg] Gerald Ditty Other [facility] Other 01-04-2022 11:45-0400 Systolic blood pressure 123 mm[Hg] Gerald Ditty Other [facility] Other 12-09-2021 10:17-0400 Body height 170.2 cm Rodger Pack [employer] Work Phone: [facility] 12-09-2021 10:17-0400 Body weight 75.75 kg Rodger Pack [employer]MANA[employer] Work Phone: [facility] 12-09-2021 10:17-0400 Diastolic blood pressure 88 mm[Hg] Rodger Pack [employer] Work Phone: [facility] 12-09-2021 10:17-0400 Heart rate 67 /min Rodger Pack [employer] Work Phone: [facility] 12-09-2021 10:17-0400 Systolic blood pressure 136 mm[Hg] Rodger Pack [employer]MANA[employer] Work Phone: [facility] Encounters Encounter Date Encounter Type Care Provider Facility Start: 07-30-2024 ambulatory Dante CALIX Facility : [place] Start: 08-14-2023 End: 08-14-2023 ambulatory RUGEN M GUSTAVO Not Available Start: 08-02-2023 End: 08-02-2023 ambulatory MARIAN MEHTA Not Available Start: 08-01-2023 End: 08-02-2023 ambulatory Dante CALIX Facility: [facility] Start: 08-01-2023 End: 08-01-2023 Patient encounter procedure Dante CALIX [facility] Start: 03-21-2023 End: 03-21-2023 ambulatory RUGEN M GUSTAVO Not Available Start: 02-23-2023 End: 02-23-2023 ambulatory Sebas Locke Other [facility] Other Start: 02-23-2023 Office outpatient vi sit 15 minutes Sebas [facility] Start: 02-06-2023 End: 02-06-2023 ambulatory Gerald Molina Other [facility] Other Start: 02-06-2023 Telephone encounter Gerald [facility] Start: 02-02-2023 End: 02-02-2023 ambulatory RICHY CASTANEDA Not Available Start: 07-13-2022 End: 07-14-[address] DANTE CALIX Facility:[facility] Start: 05-24-2022 End: 05-24-2022 ambulatory ANAHI LOZOYA . Facility:[facility] Start: 04-05-2022 End: 04-05-[address] IVETT TIJERINA Facility:[facility] Start: 02-02-2022 End: 02-02-2022 ambulatory Gerald Molina Other [facility] Other Start: 02-02-2022 Telephone encounter Gerald [facility] Start: 01-06-2022 End: 01-07-[address] DOCTOR VILLASENOR Facility:[facility] Start: 01-04-2022 End: 01-04-2022 ambulatory Gerald Molina Other [facility] Other Start: 01-04-2022 Patient encounter procedure Gerald Molina [facility] Start: 12-09-2021 End: 12-09-2021 ambulatory RODGER PACK Facility:[facility] Start: 12-09-2021 End: 12-09-2021 Patient encounter procedure Rodger Granados [employer] Work Phone: Gastroenterology Comment on above: Gastroesophageal ref lux disease without esophagitis (Primary Dx) Start: 11-24-2021 End: 11-24-2021 ambulatory Gerald Molina Other [facility] Other Start: 11-24-2021 Telephone encounter Gerald [facility]ina [facility] Start: 10-05-2021 End: 05-24-2022 Recurring KIMI CHEN [facility] Procedures Date Procedure Procedure Detail Performing Clinician Start: 07-13-[address] DANTE CALIX Comment on above: Performed By: #### PSAD #### [facility] [address] [address] [address] Brooklyn Santos Bilateral segmental vasectomy and ligation KIMI CHEN Esophagogastroduodenoscopy Adam CALIX Plan of Treatment Date Care Activity Detail Author Start: 06-01-2026 PROSTATE CANCER SCREENING DISCUSSION PROSTATE CANCER SCREENING DISCUSSION [facility] Start: 09-09-2023 DIABETES SCREEN DIABETES SCREEN [facility] Start: 11-04-2021 Influenza vaccination INFLUENZA (#1) [facility] Start: 03-06-2021 ADVANCE DIRECTIVE DISCUSSION ADVANCE DIRECTIVE DISCUSSION [facility] Start: 03-06-2021 DEPRESSION ASSESSMENT DEPRESSION ASS ESSMENT [facility] Start: 02-19-2021 COVID-19 VACCINE (4 - Booster for Moderna series) COVID-19 VACCINE (4 - Booster for Moderna series) [facility] Start: 09-11-2020 PNEUMOCOCCAL: 65+ (1 - PCV) PNEUMOCOCCAL: 65+ (1 - PCV) [facility] Start: 09-11-2005 SHINGRIX VACCINE (1 of 2) SHINGRIX VACCINE (1 of 2) [facility] Start: 09-11-2000 COLOGUARD (FIT-DNA) COLOGUARD (FIT-D NA) [facility] Start: 09-11-2000 Colonoscopy COLONOSCOPY [facility] Start: 09-11-2000 COLORECTAL CANCER SCREENING COLORECTAL CANCER SCREENING [facility] Start: 09-11-[address] COLONOGRAPHY [facility] Start: 09-11-2000 FECAL OCCULT BLOOD FECAL OCCULT BLOO D [facility] Start: 09-11-2000 SIGMOIDOSCOPY SIGMOIDOSCOPY [facility] Start: 09-11-1990 LIPID SCREEN LIPID SCREEN [facility] Start: 09-11-1974 Urine microalbumin profile DTAP,TDAP,TD (1 - Tdap) [facility] Start: 09-11-1973 HEPATITIS C SCREENING HEPATITIS C ERROL ROBLES [facility] End: 12-09-2022 EGD - THERAPEUTIC, EUS, OR TUBE INTERVENTIONS EGD - THERAPEUTIC, EUS, OR TUBE INTERVENTIONS Endoscopy Routine Gastroesophageal reflux disease without esophagitis 1 Occurrences starting 12/09/2021 until 12/09/2022 [facility] Work Phone: Comment on above: 1 Occurrences starti ng [facility]09[facility]2021 [facility] Immunization Date Immunization Notes Care Provider Sariah villeda 01-21-2023 influenza virus vaccine, unspecified formulation Dante CALIX [facility] 12-16-2021 influenza virus vaccine, unspecified formulation Dante CALIX [facility] 12-25-2020 SARS-CoV-2 (COVID-19 ) mRNA-1273 vaccine Dante CALIX [facility] 12-15-2020 influenza virus vaccine, unspecified formulation Dante CALIX [facility] 04-17-2020 SARS-CoV-2 (COVID-19 ) mRNA-1273 vaccine RUGEN GUSTAVO [facility] 04-15-2020 COVID-19 Vaccine Moderna - Documentation Purposes Only Gerald Molina Other [facility] 03-27-2020 SARS-CoV-2 (COVID-19 ) mRNA-1273 vaccine RUGEN GUSTAVO [facility] 03-18-2020 COVID-19 Vaccine Moderna - Documentation Purposes Only Gerald Molina Other [facility] 12-05-2019 influenza virus vaccine, unspecified formulation RUGEN GUSTAVO [facility] 12-03-2019 influenza virus vaccine, unspecified formulation Dante CALIX [facility] 05-10-2014 tetanus toxoid, redu ambrosio diphtheria toxoid, and acellular pertussis vaccine, adsorbed Gerald Molina Other [facility] Other Payers Date Payer Category Payer Unknown [id number] 2020 Medicare MEDICARE MEDICAR E A AND B [id number] 2020-Present [phone] [address] [address] [place] [address] Medicare [id number] 2020 Unknown ANTHEM ANTHEM ME DICARE SUPPLEMENT [id number] 2020-Present [phone] [address] [place] [address] Indemnity [id number] 1959 Medicare [id number] 1959 Medicare [id number] 1955 Unknown [id number] [id number]. 2.593 1955 Unknown [id number] 2.16.840.1.021287.3.579. 2.593 1955 Unknown [id number] 2.16.840.1.217285.3.579. 2.593 1955 Unknown [id number] 2.16.840.1.058116.3.579. 2.593 1955 Unknown [id number] 2.16.840.1.658640.3.579. 2.727 1955 Unknown [id number] 2.16.840.1.519165.3.579. 2.727 1955 Unknown [id number] 2.16.840.1.650301.3.579. 2.1259 1955 Unknown [id number] 2.16.840.1.945739.3.579. 2.1259 1955 Unknown [id number] 2.16.840.1.278540.3.579. 2.1259 1955 Unknown [id number] [id number]. 2.1259 [facility] [id number] Social History Date Type Detail Facility Tobacco smoking status COIS Tobacco smoking consumption unknown [facility] Start: 1955 Sex Assigned At Not on file [facility] Start: 11-29-2021 End: 12-09-2021 Exposure to SARS-CoV-2 (event) Not sure [facility] Sex Assigned At [facility] Start: 06-19-2020 End: 08-01-2023 Tobacco smoking status Never smoked tobacco (finding) [facility] Tobacco smoking status Never [facility] Functional Status Date Assessment Result Facility 08-01-2023 Functional Status N/A [facility] Clinical Notes 12-09-2021 to 08-01-2023 Note Date & Type Note Facility 08-01-2023 Hospital Discharge instructions Patient Education 08/01/2023 08:41:20 Benign Prostatic Hyperplasia Benign Prostatic Hyperplasia Benign prostatic hyperplasia (BPH) is an enlarged prostate gland that is caused by the normal aging process. The prostate may get bigger as a man gets older. The condition is not caused by cancer. The prostate is a walnut-sized gland that is involved in the production of semen. It is located in front of the rectum and below the bladder. The bladder stores urine. The urethra carries stored urine out of the body. An enlarged prostate can press on the urethra. This can make it harder to pass urine. The buildup of urine in the bladder can cause infection. Back pressure and infection may progress to bladder damage and kidney (renal) failure. What are the causes? This condition is part of the normal aging process. However, not all men develop problems from this condition. If the prostate enlarges away from the urethra, urine flow will not be blocked. If it enlarges toward the urethra and compresses it, there will be problems passing urine. What increases the risk? This condition is more likely to develop in men older than 50 years. What are the signs or symptoms? Symptoms of this condition include: Getting up often during the night to urinate. Needing to urinate frequently during the day. Difficulty starting urine flow. Decrease in size and strength of your urine stream. Leaking (dribbling) after urinating. Inability to pass urine. This needs immediate treatment. Inability to completely empty your bladder. Pain when you pass urine. This is more common if there is also an infection. Urinary tract infection (UTI). How is this diagnosed? This condition is diagnosed based on your medical history, a physical exam, and your symptoms. Tests will also be done, such as: A post-void bladder scan. This measures any amount of urine that may remain in your bladder after you finish urinating. A digital rectal exam. In a rectal exam, your health care provider checks your prostate by putting a lubricated, gloved finger into your rectum to feel the back of your prostate gland. This exam detects the size of your gland and any abnormal lumps or growths. An exam of your urine (urinalysis). A prostate specific antigen (PSA) screening. This is a blood test used to screen for prostate cancer. An ultrasound. This test uses sound waves to electronically produce a picture of your prostate gland. Your health care provider may refer you to a specialist in kidney and prostate diseases (urologist). How is this treated? Once symptoms begin, your health care provider will monitor your condition (active surveillance or watchful waiting). Treatment for this condition will depend on the severity of your condition. Treatment may include: Observation and yearly exams. This may be the only treatment needed if your condition and symptoms are mild. Medicines to relieve your symptoms, including: ?Medicines to shrink the prostate. ?Medicines to relax the muscle of the prostate. Surgery in severe cases. Surgery may include: ?Prostatectomy. In this procedure, the prostate tissue is removed completely through an open incision or with a laparoscope or robotics. ?Transurethral resection of the prostate (TURP). In this procedure, a tool is inserted through the opening at the tip of the penis (urethra). It is used to cut away tissue of the inner core of the prostate. The pieces are removed through the same opening of the penis. This removes the blockage. ?Transurethral incision (TUIP). In this procedure, small cuts are made in the prostate. This lessens the prostate's pressure on the urethra. ?Transurethral microwave thermotherapy (TUMT). This procedure uses microwaves to create heat. The heat destroys and removes a small amount of prostate tissue. ?Transurethral needle ablation (TUNA). This procedure uses radio frequencies to destroy and remove a small amount of prostate tissue. ?Interstitial laser coagulation (ILC). This procedure uses a laser to destroy and remove a small amount of prostate tissue. ?Transurethral electrovaporization (TUVP). This procedure uses electrodes to destroy and remove a small amount of prostate tissue. ?Prostatic urethral lift. This procedure inserts an implant to push the lobes of the prostate away from the urethra. Follow these instructions at home: Take naxh-rxn-bhejuur and prescription medicines only as told by your health care provider. Monitor your symptoms for any changes. Contact your health care provider with any changes. Avoid drinking large amounts of liquid before going to bed or out in public. Avoid or reduce how much caffeine or alcohol you drink. Give yourself time when you urinate. Keep all follow-up visits. This is important. Contact a health care provider if: You have unexplained back pain. Your symptoms do not get better with treatment. You develop side effects from the medicine you are taking. Your urine becomes very dark or has a bad smell. Your lower abdomen becomes distended and you have trouble passing urine. Get help right away if: You have a fever or chills. You suddenly cannot urinate. You feel light-headed or very dizzy, or you faint. There are large amounts of blood or clots in your urine. Your urinary problems become hard to manage. You develop moderate to severe low back or flank pain. The flank is the side of your body between the ribs and the hip. These symptoms may be an emergency. Get help right away. Call 911. Do not wait to see if the symptoms will go away. Do not drive yourself to the hospital. Summary Benign prostatic hyperplasia (BPH) is an enlarged prostate that is caused by the normal aging process. It is not caused by cancer. An enlarged prostate can press on the urethra. This can make it hard to pass urine. This condition is more likely to develop in men older than 50 years. Get help right away if you suddenly cannot urinate. This information is not intended to replace advice given to you by your health care provider. Make sure you discuss any questions you have with your health care provider. Document Revised: 09/08/2021 Document Reviewed: 09/08/2021 [email or web address] Patient Education 2022 [employer]. Follow Up Care 07/25/2022 09:24:49 With:FIFI MCGUIRE, Dante Hodge, URL Address: Laura [address] [place], [place] [address]- When: Unknown [facility] 02-23-2023 Evaluation note Encounter Date Diagnosis Assessment Notes Feb, GERD (gastroeso phageal reflux disease) (ICD-10 - K21.9) Pt is wanting to be completely off of the pantoprazole. Pt advised to cut down on this mediation due to a rebound effect. Pt advised to take the pantoprazole once daily first thing in the morning instead of twice daily. Pt advised if he is doing well on the once daily to stay on this until the next visit. Pt RTO in 2 months Pt advised if after two weeks and symptoms are not better, to go back to twice a day [facility] Other 11-01-2022 Evaluation note* Encounter Date Diagnosis Assessment Notes Treatment Notes Treatment Clinical Notes Jan, GERD (gastroesophageal reflux disease) (ICD-10 - K21.9) CONTINUE PANTOPRAZOLE DIRECTED Jan, Epigastric pain (ICD-10 - R10.13) Jan, Dyspepsia (ICD-10 - K30) Jan, Vomiting (ICD-10 - R11.10) [facility] Other 10-06-2022 History and physical note* Rodger Granados APRN.MANAGER GOLF - 12/09/2021 3:30 PM EDT Self Referral for an opinion regarding acid reflux. REASON FOR VISIT: acid reflux HPI: Honey Raymond is a 66 year old male who presents for evaluation of acid reflux. He admits to having severe mid epigastric burning that travels into his esophagus for the past year. He presents today for a second opinion as he has already had work-up completed at [facility]. He is currently [id number] mg of Protonix twice daily without relief of his symptoms. He underwent an EGD on 08/24/2020 thatwas unremarkable. He also underwent a right upper quadrant ultrasound that revealed a fatty liver. HIDA scan was also completed that was normal. Past Clinical Work-Up: EGD [facility] 08/24/20: Negative pathology ALLERGIES Allergen Reactions Prednisone GI Upset No past medical history on file. No past surgical history on file. No family history on file. Current Outpatient Medications Medication Sig mecobalamin (B12 ACTIVE ORAL) Take 1 tablet by mouth once daily. atorvastatin (LIPITOR) 40 mg tablet Take 40 mg by mouth once daily. gabapentin (NEURONTIN) 100 mg capsule Take 100 mg by mouth three times daily. pantoprazole DR (PROTONIX) 40 mg tablet Take 80 mg by mouth once daily. LISINOPRIL-HYDROCHLOROTHIAZIDE ORAL Take 10-12.5 mg by mouth once daily. 1/2 tablet tamsulosin (FLOMAX) 0.4 mg Take 0.8 mg by mouth once daily. SITagliptin (JANUVIA) 100 mg tablet Take 100 mg by mouth once daily. multivitamin,ther and minerals (MEN'S MULTIPLUS ORAL) Take 1 tablet by mouth once daily. folic acid 0.8 mg cap Take 1 capsule by mouth once daily. bismuth subsalicylate (PEPTO-BISMOL ORAL) Take by mouth as needed. famotidine (PEPCID AC) 10 mg tablet Take 10 mg by mouth twice daily as needed. calcium carbonate (ANTACID EXT STR, CALCIUM CARB, ORAL) Take 1 tablet by mouth as needed. No current facility-administered medications for this visit. I have confirmed and edited, if necessary, the PFSH obtained by others. REVIEW OF SYSTEMS: CONSTITUTIONAL: Negative for unintentional weight loss, malaise or fevers HEENT: Negative for frequent/significant headaches, changes in hearing/vision, nose bleeds or othernasal problems RESPIRATORY: Negative for cough, hemoptysis, wheezing or dyspnea CARDIOVASCULAR: Negative for chest pain, palpitations, syncope or lightheadedness GI: See HPI NEURO: Negative for encephalopathy, tremor or gait abnormality PSYCH: Negative for new changes in mood or affect I have confirmed and edited, if necessary, the PFSH obtained by others. PHYSICAL EXAM: BP 136/88 (BP Site: Right Arm, BP Position: Sitting, BP Cuff Size: Regular Adult) Pulse 67 Ht 170.2 cm (5' 7 ) Wt 75.8 kg (167 lb) BMI 26.16 kg/m Gen: Comfortable in NAD Head: Normocephalic, atraumatic Skin: No jaundice, rashes or skin lesions Eyes: Sclera anicteric, conjunctiva pink Heart: RRR Lungs: CTAB Abd: Soft, non-distended, non-tender, bowel sounds present, no palpable masses or organomegaly Rectal Exam: Examination deferred by patient Neuro: Alert and oriented, no tremor or gross focal motor deficits Psych: Congruent mood and affect, appropriate insight and judgement ASSESSMENT/PLAN: Mr. Raymond is a 66 year old male with a history of BPH that presents for GERD. He admits to havingsevere mid epigastric burning that travels into his esophagus for the past year. He presents today for a second opinion as he has already had work-up completed at [facility]. He is currently taking 40 mg of Protonix twice daily without relief of his symptoms. He underwent an EGD on 08/24/2020 that was unremarkable. He also underwent a right upper quadrant ultrasound that revealed a fatty liver. HIDA scan was also completed that was normal. I recommend an EGD with Patel placement off PPI for further evaluation of his persistent reflux. Procedure/risks were discussed with the patient in great detail including the risk of sedation and bleeding. Patient is agreeable with proceeding and instructed to call with any questions or concerns. 1. Gastroesophageal reflux disease without esophagitis - ICD9: 530.81, ICD10: K21.9 - Discussed lifestyle modifications including losing weight, limiting caffeine, no meals three hours before sleep, and head of bed elevation - EGD - THERAPEUTIC, EUS, OR TUBE INTERVENTIONS This note was dictated using ComCam speech recognition software and may contain some errors that were a result of the program not accurately transcribing what was dictated. Rodger Granados APRN.CNP documented [facility] Instructions* Patient Instructions* Rodger Granados APRN.CNP - 12/09/2021 10:33 AM EDT Thank you for seeing me in clinic today. As we discussed, my recommendations are as follows: 1.EGD w/ PATEL 2.stop Protonix 2 weeks prior to procedure 3.can take Pepcid up to 3 days prior to procedure 4.Follow up with physician If you have any questions about the above treatment plan, please do not hesitate to call the officeor send me a [place] message. [facility] note Future Appointments Appointment Date:07/01/2022 08:00:00 AM Scheduled Provider:Dante CALIX MD Location:[facility] Future Appointments Appointment Date:07/30/2024 08:00:00 AM Scheduled Provider:Dante CALIX MD Location:[facility] Appointment Type:URO Office Visit Diagnostic Tests Pending * PSA Total 06/04/24 [facility] Evaluation note* Diagnosis Gastroesophageal reflux disease without esophagitis- Primary Esophageal reflux documented in this encounter [facility] noteNo InformationNortDepartment of [facility] [place] Other History general Narrative - Reported* Type Description Date Medical History HTN (hypertension) Medical History Seizure Medical History Type II diabetes mellitus Medical History GERD (gastroesophageal reflux di sease) Surgical History tonsillectomy Surgical History hernia Surgical History colonoscopy Surgical History EGD Hospitalization History skull fracture from [facility] Other Hospital course Narrative No data available for this section [facility] No data available for this section [facility] No data available for this section [facility] CenterReason for referral (narrative)* Outpatient Procedure (Routine) - Authorized Specialty Diagnoses / Procedures Referred By Pankaj van Referred To Contact [facility] Diagnoses Gastroesophageal reflux disease without esophagitis Procedures EGD - THERAPEUTIC, EUS, OR TUBE INTERVENTIONS ESOPHAGOGASTRODUODENOSC OPY TRANSORAL DIAGNOSTIC Rodger Granados APRN.CNP [address] [facility] [place] [address] [facility] [address] [place] [address] Referral ID Status Reason Start Date Expiration Date Visits Requested Visits Authorized [id number] Authorized Auto-Generat ed Referral 12/09/2021 12/09/2022 1 1 [facility] Summary Purpose Family History No Family History Records FoundNo Family History Records FoundNo Family History Records FoundNo Family History Records Found No data available for this section No Family History Records FoundNo Family History Records Found Advance Directives No Advanced Directives Records FoundNo Advanced Directives Records FoundNo Advanced Directives Records FoundNo Advanced Directives Records FoundNo Advanced Directives Records FoundNo Advanced Directives Records Found Additional Source Comments (unrecognized sect ion and content) No Status Records FoundNo Status Records FoundNo Status Records FoundNo Status Records FoundNo Status Records FoundNo Status Records Found INFORMATION SOURCE (unrecogn ized section and content) DATE CREATED AUTHOR 08/29/2020 [facility] DATE CREATED AUTHOR AUTHOR'S ORGANIZ ATION 03/12/2021 [facility] d[facility] Specialist DATE CREATED AUTHOR AUTHOR'S ORGANIZ ATION 12/10/2021 [facility] DATE CREATED AUTHOR AUTHOR'S ORGANIZ ATION 07/17/2022 [facility] DATE CREATED AUTHOR AUTHOR'S ORGANIZ ATION 08/02/2023 [facility] DATE CREATED AUTHOR AUTHOR'S ORGANIZ ATION 08/14/2023 [facility] dical Specialists EPIC Source Comments (unrecognize d section and content) In the event this informatio n is protected by the Federal Confidentiality of Alcohol and Drug Abuse Patient Records regulations: The Federal rules restrict any use of the information to criminally investigate or prosecute any alcohol or drug abuse patient.[facility] Reason for Visit (unrecogniz ed section and content) Reason Comments New Patient GERD Patient Care team informatio n (unrecognized section and content) Personnel Name: KIMI CHEN MD Address: Address: [address] [place] [address] Personnel Name: KIMI CHEN MD Address: Address: [address] [place] [address] FOR RECORDS PERTAINING TO PATIENTS WHO ARE OR HAVE BEEN ENROLLED IN A CHEMICAL DEPENDENCY/SUBSTANCEABUSE PROGRAM, SOME INFORMATION MAY BE OMITTED. This clinical summary was aggregated from multiple sources. Caution should be exercised in using it in the provision of clinical care. This summary normalizes information from multiple sources, and as a consequence, information in this document may materially change the coding, format and clinical context of patient data. In addition, data may be omitted in some cases. CLINICAL DECISIONS SHOULD BE BASED ON THE PRIMARY CLINICAL RECORDS. [facility] provides no warranty or guarantee of the accuracy or completeness of information in this document.
[2023-09-22 09:06] LABS: Creatinine Urine Random 118.19 mg/dL (20.00-300.00); Microalbum Creatinine Ratio Ur 10.9 mg/g (0.0-29.9); Microalbumin Urine Random <1.3 mg/dL (<=30.0)
[2023-09-22 09:46] LABS: Basophils Percent Auto 0.9 % (0.2-2.0); Eosinophils Absolute Auto 0.1 10^3/uL (0.0-0.7); Eosinophils Percent Auto 1.3 % (0.9-7.0); Hematocrit 43.6 % (42.0-54.0); Hemoglobin 14.2 g/dL (14.0-18.0); Immature Granulocytes Abs Auto 0.01 10^3/uL (0.00-0.03); Immature Granulocytes Pct Auto 0.2 % (0.0-0.5); Lymphocytes Absolute Auto 1.6 10^3/uL (1.2-3.8); Lymphocytes Percent Auto 34.4 % (20.5-60.0); Mean Corpuscular HGB Conc 32.6 g/dL (29.9-35.2); Mean Corpuscular Hemoglobin 32.1 pg (25.9-34.0); Mean Corpuscular Volume 98.4 fL (80.0-94.0); Mean Platelet Volume 10.4 fL (9.5-13.5); Monocytes Absolute Auto 0.5 10^3/uL (0.3-0.8); Monocytes Percent Auto 9.8 % (1.7-12.0); Neutrophils Absolute Auto 2.5 10^3/uL (1.4-6.5); Neutrophils Percent Auto 53.4 % (43.0-75.0); Platelet Count 150 10^3/uL (150-450); Red Blood Count 4.43 10^6/uL (4.70-6.10); Red Cell Distribution Width 12.3 % (11.0-15.0); White Blood Count 4.6 10^3/uL (4.0-11.0)
[2023-09-22 09:56] LABS: Alanine Aminotransferase 38 U/L (16-63); Albumin Globulin Ratio 1.4; Albumin Level 4.1 g/dL (3.4-5.0); Alkaline Phosphatase 58 U/L (46-116); Anion Gap 11.4; Aspartate Amino Transferase 29 U/L (15-37); BUN Creatinine Ratio 21.1; Bilirubin Total 0.9 mg/dL (0.2-1.0); Calcium 9.2 mg/dL (8.5-10.1); Carbon Dioxide 29.1 mmol/L (21.0-32.0); Chloride 104 mmol/L (98-107); Chol HDL Ratio 2.6; Cholesterol 124 mg/dL (<=200); Estimated GFR (African America >60 (>=60); Estimated GFR (Non-African Ame >60 (>=60); Glucose 125 mg/dL (74-106); HDL Cholesterol 48 mg/dL (40-60); LDL Cholesterol Calculated 67.4 mg/dL; Potassium 4.5 mmol/L (3.5-5.1); Sodium 140 mmol/L (136-145); Total Protein 7.1 g/dL (6.4-8.2); Triglycerides 43 mg/dL (<=150); VLDL CHOLESTEROL 8.6 mg/dL
== END 2023-09-22 08:00 | disposition home or self-care (01) ==
PROVIDERS: PCP Family Medicine; Visit Provider Family Medicine
DX: Z00.00 Encounter for general adult medical examination without abnormal findings (principal); E78.6 Lipoprotein deficiency; E11.69 Type 2 diabetes mellitus with other specified complication; I10 Essential (primary) hypertension; Z13.220 Encounter for screening for lipoid disorders
CPT/HCPCS: 36415; 80053; 80061; 82043; 82570; 85025

== ENCOUNTER 2024-07-19 08:39 | Outpatient (OUT) | payer MEDICARE, BC, SELFPAY ==
--- OUTSIDE RECORDS SUMMARY | 2024-07-19 09:01 | XMS_ITS | CCD ---
Author Organization [facility] Care Team Providers Care Rehab Physician Name Role Phone Unavailable Primary Care Provider UnavailRODGER Howell Attending Unavailable Gerald Molina Unavailable COURTNEY CHEN Primary Care Physician [phone] DR DANTE CALIX Admitting Unavailable COOK, DR DANTE Hodge Attending Unavailable GUSTAVO, DR BOLDEN Primary Care Unavailable FIFI, DR DANTE Hodge Consulting Unavailable MISC, DR DEVRIES Admitting Unavailable MISC, DR DEVRIES Attending Unavailable GERALD MOLINA Primary Care Unavailable GUSTAVO, DR BOLDEN Consulting Unavailable SEAN GIMENEZ Consulting Unavailable GERALD MOLINA Consulting Unavailable HEMMER, DR DONNA Reyes Admitting Unavailable HEMMER, DR DONNA Reyes Attending Unavailable GERALD MOLINA Primary Care Unavailable HEMMER, DR DONNA Reyes Consulting Unavailable DEVORA .ANAHI Admitting Unavailable ANAHI SHORT Attending Unavailable GUSTAVO, DR BOLDEN Primary Care Unavailable TERESA .CANDELARIA Consulting UnavailSean Gerber Consulting Unavailable Sebas Locke Unavailable Dante CALIX Attending Unavailable Dante CALIX Attending Unavailable MD Dante Lew Attending Provider Dante Lew Attending Unavailable Dante Lew Admitting Unavailable Courtney Chen MD Unavailable Courtney Chen MD Primary Care Provider [phone] DONNA TIJERINA Attending Unavailable MARIAN MEHTA Attending Unavailable COURTNEY CHEN Attending Unavailable COURTNEY CHEN Attending Unavailable MAURICIO FRIAS Attending Unavailable COURTNEY CHEN Referring Unavailable COURTNEY CHEN Attending Unavailable COURTNEY CHEN Attending Unavailable Allergies Allergy Classification Reported Allergen(s) Allergy Type Date of Onset Reaction(s) Facility (9 sources) predniSONE; Translations: [prednisone] Drug Allergy 12-10-19 22 GI Upset, Gastroesophageal reflux disease (disorder) [facility] (1 source) predniSONE Drug Allergy 05-01-19 24 [facility] [facility] (8 sources) Prednisone Allergy to substance 09-09-19 21 [facility] Medications Current Medications Medication Drug Class(es) Dates Sig (Normalized) Sig (Original) aspirin 81 mg oral tablet (1 source) Platelet Aggregation Inhibitor, Nonsteroidal Anti-inflammatory Drug Start: 12-04-2018 take 1 tablet by mouth once daily aspirin 81 mg oral tablet 81 mg = 1 tab(s), Oral, Daily Start Date: 12/04/18 Status: Ordered atorvastatin 40 mg oral tablet (17 sources) HMG-CoA Reductase Inhibitor Start: 05-01-2023 Atorvastatin Active MG PO May 01, 2023 1:00am Start: 11-02-2021 take 1 tablet by enrrique th once daily atorvastatin (Lipitor) 40 MG tablet Indications: Lipoprotein deficiency disorder (CMS/HCC) TAKE 1 TABLET BY MOUTH EVERY DAY 90 tablet 4 10/23/2023 Active Comment on above: Take 40 mg by mouth once daily. B-12 (2 sources) Start: 9 B-12 Start Date: 12/04/18 Status: Ordered ciprofloxacin 500 mg oral tablet (1 source) Quinolone Antimicrobial Start: 0 Cipro 500 mg Tab See Instructions, Take 1 tab day prior to procedure and 1 tab day of procdure - afterwards, # 2 tab(s), Refills(s) 0, Pharmacy: [facility]/pharmacy #[id number], 174, cm, 10/31/19 15:48:00 EDT, Height/Length Dosing, 77.5, kg, 10/31/19 15:48:00 EDT, Weight Dosing Start Date: 11/13/19 Status: Ordered folic acid 0.8 mg oral tablet (18 sources) Start: 1 take 0.8 mg by mouth once daily Folic Acid 800 mcg Tablet Active 0.8 MG PO Daily August 24, 2020 12:00am Start: 08-24-2020 take 0.8 mg by mouth once miko y Folic Acid Active 0.8 MG PO Daily August 24, 2020 12:00am Start: 12-04-2018 folic acid fol ic acid Start Date: 12/04/18 Status: Ordered take 1 capsule by mo uth in the morning Folic Acid 0.8 MG capsule Take 1 capsule by mouth in the morning. Active take 1 tablet by enrrique th every other day Folic Acid 800 MCG 1 tablet Orally EVERY OTHER DAY Active take 1 tablet by enrrique th every other day Folic Acid 800 MCG 1 tablet Orally EVERY OTHER DAY Active Comment on above: Take 1 capsule by mo uth once daily. gabapentin 100 mg oral capsule (18 sources) Anti-epileptic Agent Start: 12-05-19 take 1 capsule by mouth three times daily Gabapentin 100 mg capsule Active 100 MG PO Three times daily August 24, 2020 12:00am Comment on above: Take 100 mg by mouth three times daily. hydroCHLOROthiazide 12.5 mg / lisinopril 10 mg oral tablet (18 sources) Thiazide Diuretic, Angiotensin Converting Enzyme Inhibitor Start: 02-12-20 lisinopril-hydroC HLOROthiazide 10-12.5 MG tablet Indications: Finding of above normal blood pressure TAKE ONE-HALF (1/2) TABLET IN THE MORNING 45 tablet 3 02/12/2024 Active Start: 03-07-2023 take 0.5 tablet by mouth in the morning lisinopril-hydroCHLOROthiazide 10-12.5 M G tablet Indications: Finding of above normal blood pressure Take 0.5 tablets by mouth in the morning. 45 tablet 3 03/07/2023 Active Start: 08-24-2020 take 1 tablet by enrrique th once daily Lisinopril-Hydrochlorothiazide 10-12.5 m g tablet Active 1 TAB PO Daily August 24, 2020 12:00am Start: 11-12-2019 hydrochlorothi azide-lisinopril 12.5 mg-10 mg oral tablet 1 tab(s), Oral, Refill(s) 0 Start Date: 11/12/19 Status: Ordered take 0.5 tablet by mouth once daily LISINOPRIL-HYDROCHLOROTHIAZIDE ORAL Take 10-12.5 mg by mouth once daily. 1/2 tablet 0 Active Comment on above: Take 10-12.5 mg by m outh once daily. 1/2 tablet Multivitamin preparation (6 sources) Start: 08-24-2020 take 1 tablet by mouth once daily Multivitamin Active 1 TAB PO Daily August 24, 2020 12:00am Multivitamin Act piter Multivitamin Tablet (1 source) Start: 08-24-2020 take 1 tablet by mouth once daily Multivitamin Tablet Active 1 TAB PO Daily August 24, 2020 12:00am pantoprazole 40 mg delayed release oral tablet (20 sources) Proton Pump Inhibitor Start: 04-19-2023 End: 05-21-2024 take 1 tablet by mouth twice daily Pantoprazole 40 mg tablet,delayed release (DR/EC) Active 40 MG PO Twice daily 180 90 May 21, 2024 9:03am Start: 08-24-2020 End: 04-19-2023 take 1 tablet by mouth once daily Pantoprazole 40 mg tablet,delayed release (DR/EC) Discontinued 40 MG PO Daily August 24, 2020 12:00am April 19, 2023 10:12am Start: 12-04-2018 take 2 tablets by mo [facility] once daily pantoprazole DR (PROTONIX) 40 mg tablet Take 80 mg by mouth once daily. 0 12/04/2018 Active Start: 12-04-2018 take 40 mg by mouth once daily pantoprazole 40 mg, Oral, Daily Start Date: 12/04/18 Status: [facility] Pantoprazole Sodium 40 MG 1 tablet Orally twice a day for 90 days Active Comment on above: Take 80 mg by mouth once daily. SITagliptin 100 mg oral tablet (20 sources) Dipeptidyl Peptidase 4 Inhibitor Start: 9 End: 6 take 1 tablet by mouth once daily Sitagliptin Phosphate (Januvia) 100 mg tablet Active 100 MG PO Daily August 24, 2020 12:00am Comment on above: Take 100 mg by mouth once daily. tamsulosin hydrochloride 0.4 mg oral capsule (18 sources) alpha-Adrenergic Brenda Start: 4 take 1 capsule by mouth twice daily tamsulosin 0.4 mg Cap 0.4 mg = 1 cap(s), Oral, BID, # 60 cap(s), Refills(s) 11, Pharmacy: [facility]/pharmacy #[id number], 174, cm, 07/25/22 8:56:00 EDT, Height/Length Dosing, 78, kg, 07/25/22 8:56:00 EDT, Weight Dosing Start Date: 05/01/23 Status: Ordered Start: 04-20-2022 take 1 capsule by mo uth twice daily tamsulosin 0.4 mg Cap 0.4 mg = 1 cap(s), Oral, BID, # 60 cap(s), Refills(s) 11, Pharmacy: [facility]/pharmacy #[id number], 174, cm, 06/29/21 8:28:00 EDT, Height/Length Dosing, 78.3, kg, 06/29/21 8:28:00 EDT, Weight Dosing Start Date: 04/20/22 Status: Ordered Start: 08-24-2020 take 1 capsule by mo uth once daily Tamsulosin 0.4 mg capsule Active 0.4 MG PO Daily August 24, 2020 12:00am take 1 capsule by mo ut every twenty-four hours in the morning tamsulosin (Flomax) 0.4 MG 24 hr capsule Take 0.8 mg by mouth in the morning. Active take 0.8 mg by mouth once daily tamsulosin (FLOMAX) 0.4 mg Take 0.8 mg by mouth once daily. 0 Active Comment on above: Take 0.8 mg by mouth once daily. vitamin b12 1 mg oral tablet (15 sources) Vitamin B12 Start: 08-24-2020 take 1 tablet by mouth once daily Cyanocobalamin (Vitamin B-12) (Vitamin B-12) 1,000 mcg Tablet Active 1000 MCG PO Daily August 24, 2020 12:00am Vitamin B 12 MAGGIE RY OTHER DAY [...] 1 tablet by enrrique th once daily. Problems Active Problems Problem Classification Problem Date Documented Da te Episodic/Chronic Abdominal pain (20 sources) Epigastric pain; Translations: [Inguinal pain] Onset: 2 Episodic Comment on above: Problem List clean-u p per request of Phys. EHR Cmte Administrative/social admission (1 source) Counseling procedure with explicit context; Translations: [Dietary counseling and surveillance] Episodic Coronary atherosclerosis and other heart disease (8 sources) Coronary arteriosclerosis; Translations: [Atherosclerotic heart disease of [place] coronary artery without angina pectoris] Onset: 3 09-20-2022 Chronic Diabetes mellitus with complications (12 sources) Type 2 diabetes mellitus; Translations: [Type 2 diabetes mellitus with other specified complication] Onset: 4 10-31-2023 Chronic Diabetes mellitus without complication (11 sources) Type 2 diabetes mellitus without complication; Translations: [Type 2 diabetes mellitus without complications] Onset: 9 Chronic Disorders of lipid metabolism (12 sources) Pure hypercholesterolemia; Translations: [Pure hypercholesterolemia, unspecified] Onset: 4 10-31-2023 Chronic Epilepsy; convulsions (20 sources) Epilepsy; Translations: [Epilepsy, unspecified, not intractable, without status epilepticus] Onset: 3 12-04-2018 Chronic Esophageal disorders (20 sources) Gastroesophageal reflux disease without esophagitis; Translations: [Gastro-esophageal reflux disease without esophagitis] Onset: 3 Chronic Comment on above: Problem List clean-u p per request of Phys. EHR Cmte Essential hypertension (10 sources) Benign essential hypertension; Translations: [Essential (primary) hypertension] Onset: 4 10-31-2023 Chronic Gastritis and duodenitis (5 sources) Gastritis; Translations: [Gastritis, unspecified, without bleeding] Episodic Hyperplasia of prostate (20 sources) Benign prostatic hypertrophy with outflow obstruction; Translations: [Benign prostatic hyperplasia with lower urinary tract symptoms] Onset: 0 12-04-2018 Chronic Joint disorders and dislocations; trauma-related (8 sources) Articular cartilage disorder of wrist; Translations: [Other articular cartilage disorders, unspecified wrist] Onset: 8 09-20-2022 Chronic Neoplasms of unspecified nature or uncertain behavior (1 source) Neoplasm of unspecified behavior of bone, soft tissue, and skin; Translations: [Neoplasm of unspecified behavior of bone, soft tissue, and skin] Onset: 4 Episodic Other aftercare (1 source) Long-term current use of oral hypoglycemic medication; Translations: [ocean transportation intermediary (current) use of oral hypoglycemic drugs] Episodic Other aftercare (1 source) long-term (current) use of aspirin; Translations: [RECORD PRESSMAN CURRENT USE OF ASPIRIN] Onset: 3 Episodic Other aftercare (1 source) Other equipment operator intermodal yard (current) drug therapy; Translations: [OTH RECORD PRESSMAN CURRENT DRUG THERAPY] Onset: 3 Episodic Other disorders of stomach and duodenum (5 sources) Indigestion; Translations: [Functional dyspepsia] Episodic Other eye disorders (9 sources) Vitreous detachment of right eye; Translations: [Vitreous degeneration, right eye] Onset: 4 10-31-2023 Chronic Other gastrointestinal disorders (10 sources) Constipation; Translations: [Constipation, unspecified] Onset: 3 05-01-2023 Episodic Other gastrointestinal disorders (1 source) Constipation, unspecified; Translations: [Constipation, unspecified] 07-02-2024 Episodic Other liver diseases (1 source) Steatosis of liver; Translations: [Fatty (change of) liver, not elsewhere classified] 07-02-2024 Chronic Comment on above: Problem List clean-u p per request of Phys. EHR Cmte Other liver diseases (1 source) Fatty (change of) liver, not elsewhere classified; Translations: [Other chronic nonalcoholic liver disease] 07-02-2024 Chronic Other lower respiratory disease (1 source) Shortness of breath; Translations: [SHORTNESS OF BREATH] Onset: 3 Episodic Other male genital disorders (1 source) H/O: male genital disorder; Translations: [Personal history of other diseases of male genital organs] Onset: 4 Episodic Other nutritional; endocrine; and metabolic disorders (8 sources) Lipoprotein deficiency disorder; Translations: [Lipoprotein deficiency] Onset: 6 09-20-2022 Chronic Other nutritional; endocrine; and metabolic disorders (8 sources) Cholesterol level - finding; Translations: [Lipoprotein deficiency] Onset: 3 09-20-2022 Chronic Other screening for suspected conditions (not mental disorders or infectious disease) (8 sources) Ultrasound scan abnormal; Translations: [Abnormal findings on diagnostic imaging of other specified body structures] Onset: 1 03-13-2023 Chronic Other screening for suspected conditions (not mental disorders or infectious disease) (20 sources) Raised prostate specific antigen; Translations: [Patient encounter status] Onset: 3 12-04-2018 Episodic Comment on above: Problem List clean-u p per request of Phys. EHR Cmte Other upper respiratory infections (8 sources) Sinusitis; Translations: [Chronic sinusitis, unspecified] Onset: 4 03-13-2023 Chronic Residual codes; unclassified (2 sources) Painful scar; Translations: [Pain, unspecified] 03-26-2024 Episodic Screening and history of mental health and substance abuse codes (1 source) Personal history of nicotine dependence; Translations: [PERSONAL HISTORY OF NICOTINE DEPEND] Onset: 3 Episodic Unclassified (2 sources) Drug therapy finding 07-22-2019 Unclassified (1 source) PERSONAL HISTORY OF COVID-19; Translations: [PERSONAL HISTORY OF COVID-19] Onset: 3 Unclassified (3 sources) CONTACT W/AND (SUSP) EXPOS COVID-19; Translations: [CONTACT W/AND (SUSP) EXPOS COVID-19] Onset: 3 Unclassified (1 source) ACUTE COUGH; Translations: [ACUTE COUGH] Onset: 3 Unclassified (1 source) Asymptomatic microscopic hematuria 07-25-2022 Past or Other Problems Problem Classification Problem Date Documented Da te Episodic/Chronic Diabetes mellitus without complication (18 sources) Prediabetes; Translations: [Hyperglycemia] Onset: 03-25-2015 12-04-2018 Episodic Epilepsy; convulsions (10 sources) Seizure; Translations: [Unspecified convulsions] Onset: 04-06-2007 09-20-2022 Episodic Genitourinary symptoms and ill-defined conditions (20 sources) Blood in urine; Translations: [Dysuria] Onset: 09-20-2022 12-04-2018 Episodic Headache; including migraine (8 sources) Headache; Translations: [Headache] Onset: 03-25-2015 09-20-2022 Episodic Inflammatory conditions of male genital organs (19 sources) Epididymitis; Translations: [Prostatitis] Onset: 09-20-2022 07-22-2019 Episodic Nausea and vomiting (2 sources) Vomiting, unspecified; Translations: [VOMITING UNSPECIFIED] Onset: 01-10-2022 Episodic Nonspecific chest pain (12 sources) Chest pain, unspecified; Translations: [Atypical chest pain] Onset: 03-25-2015 Episodic Other aftercare (8 sources) Drug therapy finding; Translations: [long-term (current) use of anticoagulants] Onset: 09-20-2022 09-20-2022 Episodic Other circulatory disease (8 sources) Elevated blood pressure; Translations: [Elevated blood-pressure reading, without diagnosis of hypertension] Onset: 03-25-2015 09-20-2022 Episodic Other disorders of stomach and duodenum (2 sources) Functional dyspepsia; Translations: [FUNCTIONAL DYSPEPSIA] Onset: 01-10-2022 Episodic Other male genital disorders (9 sources) History of prostatitis; Translations: [Personal history of other diseases of male genital organs] Onset: 08-14-2023 08-01-2023 Episodic Other skin disorders (8 sources) H/O: skin disorder; Translations: [Personal history of diseases of the skin and subcutaneous tissue] Onset: 08-14-2023 08-14-2023 Episodic Sprains and strains (8 sources) Sprain of jaw; Translations: [Sprain of jaw, unspecified side, initial encounter] Onset: 08-14-2023 08-14-2023 Episodic Unclassified (1 source) CONTACT W/AND (SUSP) EXPOS COVID-19; Translations: [CONTACT W/AND (SUSP) EXPOS COVID-19] Onset: 04-05-2022 Results Test Name Value Interpretation Reference Range Facility Laboratory - Hematology and Cell countson 03-18-2024 HbA1c (Bld) [Mass fraction] 6.8 % [facility] No Panel Informationon 03-18 Interpretation and review of laboratory results Abnormal [facility] Pathology Request for Lab Co rpon 12-20-2023 Pathology Request for Lab Luly Normal [facility] Comment on above: Order Comment: PATHO LOGY SKIN SPECIMEN Result Comment: See report. Scanned copy available in EMR. PERFORMED BY: [place] [address] PATHOLOGIST SURTASS ANALYST LE HENRY M.D. Performed By: #### P ATH TO [facility] #### [address] Ambulatory Visit Summaryon 0 08-01-2023 Ambulatory Visit Summary HONEY RAYMOND Panda :1955 Visit Date:08/01/2023 Ambulatory Visit Instructions Your Diagnosis BPH with obstruction/lower urinary tract symptoms History of prostatitis Asymptomatic microscopic hematuria Your Care Team Attending Physician - Dante CALIX MD Primary Care Physician - GUSTAVO MCGUIRE, COURTNEY Reyes This Is Your Medications List tamsulosin (tamsulosin 0.4 mg Cap) Contact prescribing physician if questions or concerns Non-Formulary Medication (folic acid) atorvastatin (atorvastatin 40 mg Tab) cyanocobalamin (B-12) gabapentin hydrochlorothiazide-lis inopril (hydrochlorothiazide-li sinopril 12.5 mg-10 mg oral tablet) pantoprazole sitagliptin (Januvia) Procedures Performed Bilateral segmental vasectomy and ligation, EGD - Esophagogastroduodenosc opy. Discharge Vitals Temperature (Temporal Artery) 36 ?C Heart Rate (Peripheral) 74 Respiratory Rate 18 Blood Pressure 130/70 Height 174 cm Height 69 in Weight 77.7 kg Weight 170.94 lb BMI 25.66 What to do next Scheduled Follow-Up Appointments Monday. 2024 8:00 AM EDT With: FIFI MCGUIRE, Dante Hodge Where: [facility] Lab Reportson 08-01-2023 Lab Reports [id number] FF Shari Rosado [facility] Patient Educationon 08-01-19 Patient Education Urology Benign [...] Follow these instructions at home: ? Take [id number] and prescription medicines only as told by [...] the medicine (more content not included)... [facility] Urology Office/Clinic Noteon 08-01-2023 Urology Office/Clinic Note [...] with voice recognition artificial intelligence software, specifically [employer], [employer] and or Simpleshow. Substitutions may have occurred due to the [...] Information FIFI MCGUIRE, Dante Hodge, URL [address] [address]- Additional Instructions: 1 year w/ PSA Patient Education Benign Prostatic Hyperplasia I, Kristen Hernadez, personally scribed for Dr. Calix on 08/01/2023 08:43:17. . Documentation recorded by the Kristen loyd, accurately reflects the services(s) I performed and decisions made by me. Authenticated by Dr. Calix on 08/01/2023 08:44:16. Problem List/Past Medical History Ongoing Abdominal pain, lower Anticoagulated Asymptomatic microscopic hematuria BPH with obstruction/lower urinary tract symptoms Dysuria Epididymitis Epilepsy Groin pain Hematuria History of prostatitis Prediabetes Prostatitis PSA elevation Historical No qualifying data Procedure/Surgical History Bilateral segmental vasectomy and ligation, EGD - Esophagogastroduodenosc opy. Medications atorvastatin 40 mg Tab B-12 folic acid gabapentin, 100 mg, Oral, TID hydrochlorothiazide-lis inopril 12.5 mg-10 mg oral tablet, 1 tab(s), Oral Januvia, 100 mg, Oral, Daily pantoprazole, 40 mg, Oral, Daily tamsulosin 0.4 mg Cap, 0.4 mg= 1 cap(s), Oral, BID, 11 refills Allergies predniSONE (GERD - Gastro-esophageal reflux disease) Social History Tobacco - Denies Tobacco Use, 10 (more content not included)... [facility] Comment on above: Result Comment: Elec tronically Signed By: Dante CALIX MD\.br\Date and Time Signed: 08/01/23 08:44 EDT\.br\Electronically Co-Signed By: Kristen Hernadez\.br\Date and Time Co-Signed: 08/01/23 08:43 EDT BNPon 05-24-2022 Natriuretic peptide B (Bld) [Mass/Vol] 99.0 pg/mL Normal <=900.0 [facility] Comment on above: Performed By: #### C MP, TSH, HSTROPN, BNP #### [facility] [address] [address] [address] Brooklyn Santos CBC AUTO DIFFon 05-24-2022 BASO # 0.0 103/ul Normal 0.0-0.1 [facility] Comment on above: Performed By: #### C BC #### [facility] [address] [address] [address] Brooklyn Santos Basophils/100 WBC (Bld) 0.8 % Normal 0.2-2.0 [facility] Comment on above: Performed By: #### C BC #### [facility] [address] [place] [address] Dr. Brooklyn Santos EO # 0.1 103/ul Normal 0.0-0.7 [facility] Comment on above: Performed By: #### C BC #### [facility] [address] [place] [address] Dr. Brooklyn Santos Eosinophils/100 WBC (Bld) 1.5 % Normal 0.9-7.0 [facility] Comment on above: Performed By: #### C BC #### [facility] [address] [place] [address] Dr. Brooklyn Santos Erythrocyte distribution width (RBC) [Ratio] 12.6 % Normal 11.0-15.0 [facility] Comment on above: Performed By: #### C BC #### [facility] [address] [place] [address] Dr. Brooklyn Santos Hematocrit (Bld) [Volume fraction] 42.2 % Normal 42.0-54.0 [facility] Comment on above: Performed By: #### C BC #### [facility] [address] [place] [address] Dr. rBooklyn Santos Hemoglobin (Bld) [Mass/Vol] 14.1 g/dL Normal 14.0-18.0 [facility] Comment on above: Performed By: #### C BC #### [facility] [address] [place] [address] Dr. Brooklyn Santos IG # 0.01 10e3/ul Normal 0.00-0.03 [facility] Comment on above: Performed By: #### C BC #### [facility] [address] [place] [address] Dr. Brooklyn Santos IG % 0.2 % Normal 0.0-0.5 [facility] Comment on above: Performed By: #### C BC #### [facility] [address] [place] [address] Dr. Brooklyn Santos LYMPH # 2.2 103/ul Normal 1.2-3.8 [facility] Comment on above: Performed By: #### C BC #### [facility] [address] [place] [address] Dr. Brooklyn Santos Lymphocytes/100 WBC (Bld) 40.5 % Normal 20.5-60.0 [facility] Comment on above: Performed By: #### C BC #### [facility] [address] [place] [address] Dr. Brooklyn Santos MANUAL DIFF REQ NO Normal [facility] Comment on above: Performed By: #### C BC #### [facility] [address] [place] [address] Dr. Brooklyn Santos MCH (RBC) [Entitic mass] 32.0 pg Normal 25.9-34.0 [facility] Comment on above: Performed By: #### C BC #### [facility] [address] [place] [address] Dr. Brooklyn Santos MCHC (RBC) [Mass/Vol] 33.4 g/dL Normal 29.9-35.2 [facility] Comment on above: Performed By: #### C BC #### [facility] [address] [place] [address] Dr. Brooklyn Santos MCV (RBC) [Entitic vol] 95.9 fL Critically high 80.0-94.0 [facility] [facility] Comment on above: Performed By: #### C BC #### [facility] [address] [place] [address] Dr. Brooklyn Santos MONO # 0.5 103/ul Normal 0.3-0.8 [facility] Comment on above: Performed By: #### C BC #### [facility] [address] [place] [address] Dr. Brooklyn Santos Monocytes/100 WBC (Bld) 10.0 % Normal 1.7-12.0 [facility] Comment on above: Performed By: #### C BC #### [facility] [address] [place] [address] Dr. Brooklyn Santos NEUT # 2.5 103/ul Normal 1.4-6.5 [facility] Comment on above: Performed By: #### C BC #### [facility] [address] [place], [place] [address] Dr. Brooklyn Santos Neutrophils/100 WBC (Bld) 47.0 % Normal 43.0-75.0 [facility] Comment on above: Performed By: #### C BC #### [facility] [id number] Brooklyn Santos Platelet mean volume (Bld) [Entitic vol] 9.4 fL Critically low 9.5-13.5 [facility] Comment on above: Performed By: #### C BC #### [facility] [id number] Brooklyn Santos PLT 162 103/ul Normal 150-450 [facility] Comment on above: Performed By: #### C BC #### [facility] [id number] Brooklyn Santos RBC 4.40 106/ul Critically low 4.70-6.10 [facility] Comment on above: Performed By: #### C BC #### [facility] [id number] Brooklyn Santos WBC 5.3 103/ul Normal 4.0-11.0 [facility] Comment on above: Performed By: #### C BC #### [facility] [address] [place], [place] [address] Dr. Brooklyn Santos D-DIMERon 05-24-2022 D-DIMER 0.21 mg/L FEU Normal <=0.59 [facility] Comment on above: Performed By: #### D DIM ####[facility] [id number] [place], [place] [address]KmDr. Brooklyn Santos D-DIMER COMMENTS SEE BELOW Normal [facility] Comment on above: Result Comment: Incr eases [...] generalized hospitalization. Performed By: #### D DIM ####[facility] [id number] [address]Dr. Brooklyn Santos PROF 14(COMP METB)on 023 Albumin [Mass/Vol] 4.4 g/dL Normal 3.4-5.0 [facility] Comment on above: Performed By: #### C MP, TSH, HSTROPN, BNP #### [facility] [address] [address] [address] Brooklyn Santos Albumin/Globulin [Mass ratio] 1.5 {ratio} Normal [facility] Comment on above: Performed By: #### C MP, TSH, HSTROPN, BNP #### [facility] [address] [address] [address] Brooklyn Santos ALP [Catalytic activity/Vol] 65 U/L Normal 46-116 [facility] Comment on above: Performed By: #### C MP, TSH, HSTROPN, BNP #### [facility] [address] [address] [address] Brooklyn Santos ALT [Catalytic activity/Vol] 38 U/L Normal 16-63 [facility] Comment on above: Performed By: #### C MP, TSH, HSTROPN, BNP #### [facility] [address] [address] [address] Brooklyn Santos Anion gap [Moles/Vol] 8.4 mmol/L Normal [facility] Comment on above: Performed By: #### C MP, TSH, HSTROPN, BNP #### [facility] [address] [address] [address] Brooklyn Santos AST [Catalytic activity/Vol] U/L Critically low 15-37 [facility] Comment on above: Performed By: #### C MP, TSH, HSTROPN, BNP #### [facility] [address] [address] [address] Brooklyn Santos Bilirubin [Mass/Vol] 0.6 mg/dL Normal 0.2-1.0 [facility] Comment on above: Performed By: #### C MP, TSH, HSTROPN, BNP #### [facility] [address] [address] [address] Brooklyn Santos Calcium [Mass/Vol] 9.1 mg/dL Normal 8.5-10.1 [facility] Comment on above: Performed By: #### C MP, TSH, HSTROPN, BNP #### [facility] [address] [place] [address] Dr. Brooklyn Santos Chloride [Moles/Vol] 105 mmol/L Normal 98-107 [facility] Comment on above: Performed By: #### C MP, TSH, HSTROPN, BNP #### [facility] [address] [place] [address] Dr. Brooklyn Santos CO2 [Moles/Vol] 30.4 mmol/L Normal 21.0-32.0 [facility] Comment on above: Performed By: #### C MP, TSH, HSTROPN, BNP #### [facility] [address] [place] [address] Dr. Brooklyn Santos Creatinine [Mass/Vol] 0.92 mg/dL Normal 0.70-1.30 [facility] Comment on above: Performed By: #### C MP, TSH, HSTROPN, BNP #### [facility] [address] [place] [address] Dr. Brooklyn Santos EGFR-AF KUWAITI >60 Normal >=60 [facility] Comment on above: Performed By: #### C MP, TSH, HSTROPN, BNP #### [facility] [address] [place] [address] Dr. Brooklyn Santos EGFR-NON AF [place]I >60 Normal >=60 [facility] Comment on above: Performed By: #### C MP, TSH, HSTROPN, BNP #### [facility] [address] [place] [address] Dr. Brooklyn Santos Globulin (S) [Mass/Vol] 2.9 g/dL Normal [facility] Comment on above: Performed By: #### C MP, TSH, HSTROPN, BNP #### [facility] [address] [address] [address] Brooklyn Santos Glucose [Mass/Vol] 96 mg/dL Normal 74-106 [facility] Comment on above: Performed By: #### C MP, TSH, HSTROPN, BNP #### [facility] [address] [address] [address] Brooklyn Santos Potassium [Moles/Vol] 3.8 mmol/L Normal 3.5-5.1 [facility] Comment on above: Performed By: #### C MP, TSH, HSTROPN, BNP #### [facility] [address] [place] [address] Dr. Brooklyn Santos Protein [Mass/Vol] 7.3 g/dL Normal 6.4-8.2 [facility] Comment on above: Performed By: #### C MP, TSH, HSTROPN, BNP #### [facility] [address] [place] [address] Dr. Brooklyn Santos Sodium [Moles/Vol] 140 mmol/L Normal 136-145 [facility] Comment on above: Performed By: #### C MP, TSH, HSTROPN, BNP #### [facility] [address] [place] [address] Dr. Brooklyn Santos Urea nitrogen [Mass/Vol] 15.0 mg/dL Normal 7.0-18.0 [facility] Comment on above: Performed By: #### C MP, TSH, HSTROPN, BNP #### [facility] [address] [place] [address] Dr. Brooklyn Santos Urea nitrogen/Creatinine [Mass ratio] 16.3 mg/mg Normal [facility] Comment on above: Performed By: #### C MP, TSH, HSTROPN, BNP #### [facility] [address] [place] [address] Dr. Brooklyn Santos PROTIMEon 05-24-2022 INR Coag (PPP) [Relative time] 1.04 {INR} Normal [facility] Comment on above: Performed By: #### P T, PTT ####[facility] [id number] [id number]. Brooklyn Santos INR GUIDELINES SEE BELOW [facility] Comment on above: Result Comment: SHAUN RED INR: 2.0 - 3.0 CONDITIONS NOT LISTED BELOW 2.5 - 3.5 FOR PROSTHETIC HEART VALVE REPLACEMENT 2.5 - 3.5 RECURRENT THROMBOSIS Performed By: #### P T, PTT ####[facility] [id number] [place] [id number]. Brooklyn Santos PT Coag (PPP) [Time] 11.0 s Normal 9.0-11.6 [facility] Comment on above: Performed By: #### P T, PTT ####[facility] [id number] [address]Dr. Brooklyn Santos PTTon 05-24-2022 aPTT Coag (Bld) [Time] 27.5 s Normal 22.3-36.2 [facility] Comment on above: Performed By: #### P T, PTT #### [facility] [address] [address] [address] Brooklyn Santos TROPONIN, HIGH SENSITIVITYon 05-24-2022 HSTROP 6.5 pg/mL Normal 4.0-76.1 [facility] Comment on above: Result Comment: CUT- OFF POINTS HAVE BEEN ESTABLISHED BASED ON THE FOURTH UNIVERSAL DEFINITIONS OF MYOCARDIAL INFARCTION. THE UPPER REFERENCE LIMIT (URL) OF TROPONIN, DEFINED THE 99TH PERCENTILE OF cTnI DISTRIBUTION IN A REFERENCE POPULATION, HAS BEEN CONFIRMED THE DECISION THRESHOLD FOR SD DIAGNOSIS. Performed By: #### C MP, TSH, HSTROPN, BNP #### [facility] [address] [address] [address] Brooklyn Santos TSHon 05-24-2022 TSH 2.307 uIU/mL Normal 0.358-3.740 [facility] Comment on above: Performed By: #### C MP, TSH, HSTROPN, BNP #### [facility] [address] [address] [address] Brooklyn Santos XR CHEST 1 Von [...] SEAN FORD Date: 2022-05-24 20:10 Normal [facility] Covid-19 PCR ([facility])on 03-08 SARS-CoV-2 (COVID-19) RNA AMBROSIO+probe Ql (Unsp spec) Detected Abnormal NOT DETECTED [facility] Comment on above: Result Comment: This test is not yet approved or cleared by the [place] FDA. When there are no FDA-approved or cleared tests available, and other criteria are met, FDA can make tests available under an emergency access mechanism called an Emergency Use Authorization (EUA). The EUA for this test is supported by the Rn Acls of Health and Human Service's (HHS's) declaration [...] longer be used). Performed By: #### C [facility] #### [facility] [address] [place] [address] Dr. Brooklyn Santos SINGLE QUAD RT UPPERon US SINGLE QUAD [...] by: SEAN GIMENEZ Date: 2022-01-06 08:20 [facility] ) HONEY RAYMOND ([id number]) 1955 M Date Time Provider Department 12/09/21 [...] call the office or send me a Scribe [employer] message. Rodger Granados APRN.CNP 12/09/2021 1:44 PM [...] he has already had work-up completed at [facility]. He is currently taking 40 mg of Protonix twice daily without relief of his symptoms. He underwent an EGD on 08/24/2020 that was unremarkable. He also underwent a right upper quadrant ultrasound that revealed a fatty liver. HIDA scan was also completed that was normal. Past Clinical Work-Up: EGD [facility] 08/24/20: Negative pathology ALLERGIES Allergen [...] Take 80 mg by mouth once daily. LISINOPRIL-HYDROCHLOROT HIAZIDE ORAL Take 10-12.5 mg by mouth once [...] he has already had work-up completed at [facility]. He is currently taking 40 mg of [...] K21.9 - (more content not included)... Normal [facility] HISTORY PHYSICALon 2 HISTORY PHYSICAL HNO ID: [id number] Author: Rodger Granados APRN.SHORE MAN Service: ? Author Type: Nurse Practitioner Type: [...] he has already had work-up completed at [facility]. He is currently taking 40 mg of Protonix twice daily without relief of his symptoms. He underwent an EGD on 08/24/2020 that was unremarkable. He also underwent a right upper quadrant ultrasound that revealed a fatty liver. HIDA scan was also completed that was normal. Past Clinical Work-Up: EGD [facility] 08/24/20: Negative pathology ALLERGIES Allergen [...] Take 80 mg by mouth once daily. LISINOPRIL-HYDROCHLOROT HIAZIDE ORAL Take 10-12.5 mg by mouth once [...] he has already had work-up completed at [facility]. He is currently taking 40 mg of [...] TUBE INTERVENTIONS This note was dictated using [employer] speech recognition software and may contain some errors that were a result of the program not accurately transcribing what was dictated. Rodger Granados APRN.SHORE MAN Normal [facility] Complete Blood Count with Au to Diffon 03-11-2021 Basophils (Bld) [#/Vol] 0.04 10*3/uL Normal 0.00-0.20 [facility] [facility] Comment on above: Performed By: #### C BCAD, CMP #### [facility] [address] [place], [place] [id number] Basophils/100 WBC (Bld) 0.8 % Normal [facility] Comment on above: Performed By: #### C CARLY, CMP #### [facility] [address] [place], [place] [id number] Eosinophils (Bld) [#/Vol] 0.07 10*3/uL Normal 0.02-0.50 [facility] Comment on above: Performed By: #### C BCASusan, CMP #### [facility] [address] [place], [place] [id number] Eosinophils/100 WBC (Bld) 1.4 % Normal [facility] Comment on above: Performed By: #### C CARLY, CMP #### [facility] [address] [place], [place] [id number] Erythrocyte distribution width (RBC) [Ratio] 12.2 % Normal 11.0-15.0 [facility] Comment on above: Performed By: #### C BCAD, CMP #### [facility] [address] [place], [place] [id number] Hematocrit (Bld) [Volume fraction] 46.2 % Normal 38.5-50.0 [facility] Comment on above: Performed By: #### C CARLY, CMP #### [facility] [address] [place], [place] [id number] Hemoglobin (Bld) [Mass/Vol] 15.2 g/dL Normal 13.0-17.1 [facility] Comment on above: Performed By: #### C BCASusan, CMP #### [facility] [address] [place], [place] [id number] Lymphocytes (Bld) [#/Vol] 1.5 10*3/uL Normal 0.9-3.9 [facility] Comment on above: Performed By: #### C CARLY, CMP #### [facility] [address] [place], [place] [id number] Lymphocytes/100 WBC (Bld) 30.0 % Normal [facility] Comment on above: Performed By: #### C BCAD, CMP #### [facility] [address] [place], [place] [id number] MCH (RBC) [Entitic mass] 32.3 pg Normal 27.0-33.0 [facility] Comment on above: Performed By: #### C BCAD, CMP #### [facility] [address] [place], [place] [id number] MCHC (RBC) [Mass/Vol] 32.9 g/dL Normal 32.0-36.0 [facility] Comment on above: Performed By: #### C BCAD, CMP #### [facility] [address] [place], [place] [id number] MCV (RBC) [Entitic vol] 98 fL Normal 80-100 [facility] Comment on above: Performed By: #### C BCAD, CMP #### [facility] [address] [place], [place] [id number] Monocytes (Bld) [#/Vol] 0.4 10*3/uL Normal 0.2-0.9 [facility] Comment on above: Performed By: #### C BCAD, CMP #### [facility] [address] [place], [place] [id number] Monocytes/100 WBC (Bld) 7.5 % Normal [facility] Comment on above: Performed By: #### C BCAD, CMP #### [facility] [address] [place], [place] [id number] Neutrophils (Bld) [#/Vol] 3.0 10*3/uL Normal 1.5-7.8 [facility] Comment on above: Performed By: #### C BCAD, CMP #### [facility] [address] [place], [place] [id number] Neutrophils/100 WBC (Bld) 60.1 % Normal [facility] Comment on above: Performed By: #### C BCAD, CMP #### [facility] [address] [place], [place] [id number] Platelet mean volume (Bld) [Entitic vol] 9.60 fL Normal 7.50-12.50 [facility] Comment on above: Performed By: #### C BCAD, CMP #### [facility] [address] [place], [place] [id number] Platelets (Bld) [#/Vol] 177 10*3/uL Normal 140-400 [facility] Comment on above: Performed By: #### C BCAD, CMP #### [facility] [address] [place], [place] [id number] RBC (Bld) [#/Vol] 4.70 10*6/uL Normal 4.20-5.80 [facility] Comment on above: Performed By: #### C BCAD, CMP #### [facility] [address] [place], [place] [id number] RDW-SD 44.6 fL Normal 37.0-50.0 [facility] Comment on above: Performed By: #### C BCAD, CMP #### [facility] [address] [place], [place] [id number] WBC (Bld) [#/Vol] 5.0 10*3/uL Normal 3.8-11.0 Karena rn [place] [facility] Comment on above: Performed By: #### C BCAD, CMP #### [facility] [address] [place], [place] [id number] Comprehensive Metabolic Pane erlin 03-11-2021 Albumin [Mass/Vol] 4.9 g/dL Normal 3.6-5.1 Karena rn [place] [facility] Comment on above: Performed By: #### C BCAD, CMP #### [facility] [address] [place], [place] [id number] Albumin/Globulin [Mass ratio] 2.3 {ratio} Normal 1.0-2.5 [facility] Comment on above: Performed By: #### C BCAD, CMP #### [facility] [address] [place], [place] [id number] ALP [Catalytic activity/Vol] 51 U/L Normal 40-129 [facility] Comment on above: Performed By: #### C BCAD, CMP #### [facility] [address] [place], [place] [id number] ALT [Catalytic activity/Vol] 28 U/L Normal 9-46 [facility] Comment on above: Result Comment: 02/03 Female reference range changed. Performed By: #### C BCAD, CMP #### [facility] [address] [place], [place] [id number] Anion gap [Moles/Vol] 18 mmol/L Normal 12-20 [facility] Comment on above: Result Comment: Effe ctive 03/11/2019 reference range changed. Performed By: #### C BCAD, CMP #### [facility] [address] [place], [place] [id number] AST [Catalytic activity/Vol] 21 U/L Normal 10-40 [facility] Comment on above: Performed By: #### C BCAD, CMP #### [facility] [address] [place], [place] [id number] Bilirubin [Mass/Vol] 0.36 mg/dL Normal 0.30-1.20 [facility] Comment on above: Performed By: #### C BCAD, CMP #### [facility] [address] [place], [place] [id number] BUN/CREA 22 Ratio Normal 6-22 [facility] Comment on above: Performed By: #### C BCAD, CMP #### [facility] [address] [place], [place] [id number] Calcium [Mass/Vol] 10.0 mg/dL Normal 8.6-10.2 [facility] Comment on above: Performed By: #### C BCAD, CMP #### [facility] [address] [place], [place] [id number] Chloride [Moles/Vol] 101 mmol/L Normal 98-107 [facility] Comment on above: Performed By: #### C BCAD, CMP #### [facility] [address] [place], [place] [id number] CO2 [Moles/Vol] 25 mmol/L Normal 20-31 [facility] Comment on above: Performed By: #### C BCAD, CMP #### [facility] [address] [place], [place] [id number] Creatinine [Mass/Vol] 1.0 mg/dL Normal 0.7-1.4 [facility] Comment on above: Performed By: #### C BCAD, CMP #### [facility] [address] [place], [place] [id number] eGFRAA 91 mL/min/1.73m2 Normal >60 [facility] Comment on above: Performed By: #### C BCAD, CMP #### [facility] [address] [place], [place] [id number] eGFRNAA 75 mL/min/1.73m2 Normal >60 [facility] Comment on above: Performed By: #### C BCAD, CMP #### [facility] [address] [place], [place] [id number] Globulin (S) [Mass/Vol] 2.1 g/dL Normal 1.9-3.7 [facility] Comment on above: Performed By: #### C BCAD, CMP #### [facility] [address] [place], [place] [id number] Glucose [Mass/Vol] 195 mg/dL High 65-99 Karena armendariz [place] [facility] Comment on above: Result Comment: For FASTING Glucose --- ADA reference ranges: Normal 65-99 mg/dl Prediabetes 100-125 Diabetes >/= 126 Performed By: #### C BCAD, CMP #### [facility] [address] [place], [place] [id number] Potassium [Moles/Vol] 4.5 mmol/L Normal 3.5-5.5 [facility] Comment on above: Performed By: #### C BCAD, CMP #### [facility] [address] [place], [place] [id number] Protein [Mass/Vol] 7.0 g/dL Normal 6.1-8.1 Karena rn [place] [facility] Comment on above: Performed By: #### C BCAD, CMP #### [facility] [address] [place], [place] [id number] Sodium [Moles/Vol] 140 mmol/L Normal 135-146 Karena rn [place] [facility] Comment on above: Performed By: #### C BCAD, CMP #### [facility] [address] [place], [place] [id number] Urea nitrogen [Mass/Vol] 22 mg/dL Normal 7-25 [facility] Comment on above: Performed By: #### C BCAD, CMP #### [facility] [address] [place], [place] [id number] Vital Signs Date Time Vital Sign Value Performing Clinician Facility 07-02-2024 10: Body height 170.18 cm [facility] 07-02-2024 10:040 Body mass index (BMI) [Ratio] 26.3 kg/m2 [facility] 07-02-2024 10: Body weight 76.3 kg [facility] 07-02-2024 10:20-0400 Diastolic blood pressure 78 mm[Hg] [facility] 07-02-2024 10:20040 Systolic blood pressure 132 mm[Hg] [facility] 03-26-2024 10:32-0500 Body height 170.2 cm Donna Hemmer PA Work Phone: [facility] 03-26-2024 10:32-0500 Body mass index (BMI) [Ratio] 26.91 kg/m2 Donna Hemmer PA Work Phone: [facility] 03-26-2024 10:32-0500 Body weight 77.93 kg Donna Hemmer PA Work Phone: [facility] 03-26-2024 10:32-0500 Diastolic blood pressure 80 mm[Hg] Donna Hemmer PA Work Phone: [facility] 03-26-2024 10:32-0500 Heart rate 63 /min Donna Hemmer PA Work Phone: [facility] 03-26-2024 10:32-0500 Respiratory rate 16 /min Donna Hemmer PA Work Phone: [facility] 03-26-2024 10:32-0500 SaO2% (BldA) [Mass fraction] 99 % Donna Hemmer PA Work Phone: [facility] 03-26-2024 10:32-0500 Systolic blood pressure 128 mm[Hg] Donna Hemmer PA Work Phone: [facility] 03-18-2024 08:27-0500 Body height 170.2 cm Courtney Chen MD Work Phone: [facility] 03-18-2024 08:27-0500 Body mass index (BMI) [Ratio] 26.47 kg/m2 Courtney Chen MD Work Phone: [facility] 03-18-2024 08:27-0500 Body weight 76.66 kg Courtney Chen MD Work Phone: [facility] 03-18-2024 08:27-0500 Diastolic blood pressure 78 mm[Hg] Courtney Chen MD Work Phone: [facility] 03-18-2024 08:27-0500 Heart rate 69 /min Courtney Chen MD Work Phone: [facility] 03-18-2024 08:27-0500 SaO2% (BldA) [Mass fraction] 98 % Courtney Chen MD Work Phone: [facility] 03-18-2024 08:27-0500 Systolic blood pressure 122 mm[Hg] Courtney Chen MD Work Phone: [facility] 10-31-2023 09:03-0400 Body height 170.2 cm Courtney Chen MD Work Phone: [facility] 10-31-2023 09:03-0400 Body mass index (BMI) [Ratio] 26.47 kg/m2 Courtney Chen MD Work Phone: [facility] 10-31-2023 09:03-0400 Body weight 76.66 kg Courtney Chen MD Work Phone: [facility] 10-31-2023 09:03-0400 Diastolic blood pressure 78 mm[Hg] Courtney Chen MD Work Phone: [facility] 10-31-2023 09:03-0400 Heart rate 57 /min Courtney Chen MD Work Phone: [facility] 10-31-2023 09:03-0400 SaO2% (BldA) [Mass fraction] 97 % Courtney Chen MD Work Phone: [facility] 10-31-2023 09:03-0400 Systolic blood pressure 118 mm[Hg] Courtney Chen MD Work Phone: [facility] 08-01-2023 08:35-0400 Body temperature 96.8 [degF] Dante CALIX [facility] 08-01-2023 08:35-0400 Diastolic blood pressure 70 mm[Hg] Dante CALIX [facility] 08-01-2023 08:35-0400 Heart rate 74 /min Dante CALIX [facility] 08-01-2023 08:35-0400 Respiratory rate 18 /min Dante CALIX [facility] 08-01-2023 08:35-0400 Systolic blood pressure 130 mm[Hg] Dante CALIX [facility] Urology [facility] 02-23-2023 10:00-0500 Body height 170.18 cm Sebas Chucky Other [employer] Other 02-23-2023 10:00-0500 Body mass index (BMI) [Ratio] 25.84 kg/m2 Sebas Moiovanner Other [employer] Other 02-23-2023 10:00-0500 Body weight 74.84 kg Sebas Locke Other [employer] Other 02-23-2023 10:00-0500 Diastolic blood pressure 68 mm[Hg] Sebas Scovanner Other [employer] Other 02-23-2023 10:00-0500 Systolic blood pressure 132 mm[Hg] Sebas Scovanner Other [employer] Other 01-04-2022 11:45-0400 Body height 170.18 cm Gerald Molina Other [employer] Other 01-04-2022 11:45-0400 Body mass index (BMI) [Ratio] 25.68 kg/m2 Gerald Molina Other [employer] Other 01-04-2022 11:45-0400 Body weight 74.39 kg Gerald Molina Other [employer] Other 01-04-2022 11:45-0400 Diastolic blood pressure 80 mm[Hg] Gerald Molina Other [facility] [employer] Other 01-04-2022 11:45-0400 Systolic blood pressure 123 mm[Hg] Gerald Molina Other [facility] [employer] Other 12-09-2021 10:17-0400 Body height 170.2 cm Rodger Pack DIGITAL PRINT OPERATOR.SHORE MAN Work Phone: [facility] 12-09-2021 10:17-0400 Body weight 75.75 kg Rodger Pack DIGITAL PRINT OPERATOR.SHORE MAN Work Phone: [facility] 12-09-2021 10:17-0400 Diastolic blood pressure 88 mm[Hg] Rodger Pack DIGITAL PRINT OPERATOR.SHORE MAN Work Phone: [facility] 12-09-2021 10:17-0400 Heart rate 67 /min Rodger Pack DIGITAL PRINT OPERATOR.SHORE MAN Work Phone: [facility] 12-09-2021 10:17-0400 Systolic blood pressure 136 mm[Hg] Rodger Pack DIGITAL PRINT OPERATOR.SHORE MAN Work Phone: [facility] Encounters Encounter Date Encounter Type Care Provider Facility Start: 07-30-2024 ambulatory Dante Hodge MCHENRY Facility :[facility] Start: 07-02-2024 End: 07-02-2024 ambulatory [facility] Work Phone: Start: 07-02-2024 End: 07-02-2024 Patient encounter procedure [facility] ys[facility] Work Phone: Start: 03-26-2024 End: 03-26-2024 Carmenza GAONA Work Phone: [facility] Start: 03-26-2024 End: 03-26-2024 Carmenza GAONA Work Phone: [facility] Start: 03-26-2024 End: 03-26-2024 Office outpatient visit 15 minutes Donna Tijerina PA Work Phone: [facility] Comment on above: Painful scar (Primar y Dx) Start: 03-26-2024 End: 03-26-2024 ambulatory DONNA TIJERINA Not Available Start: 03-18-2024 End: 03-18-2024 Office outpatient visit 25 minutes Courtney Chen MD Work Phone: [facility] Comment on above: Seizure disorder (CM S/HCC) (Primary Dx); Type 2 diabetes mellitus with other specified complication, without long-term current use of insulin (CMS/HCC); Hyperlipidemia, unspecified (CMS/HCC); Epilepsy, unspecified, not intractable, without status epilepticus (CMS/HCC); Unspecified convulsions (CMS/HCC); Type 2 diabetes mellitus without complications (CMS/HCC) Start: 03-18-2024 End: 03-18-2024 ambulatory COURTNEY CHEN Not Available Start: 12-20-2023 End: 12-20-2023 ambulatory [facility] Work Phone: Start: 12-20-2023 End: 12-20-2023 Departed Referred [facility] Work Phone: [facility] Work Phone: Start: 10-31-2023 End: 10-31-2023 Bamboo flowsheet Courtney Chen MD Work Phone: [facility] Start: 10-31-2023 End: 10-31-2023 Bamboo flowsheet Courtney Chen MD Work Phone: [facility] Start: 10-31-2023 End: 10-31-2023 Assay of hemosiderin, quant Courtney Chen MD Work Phone: [facility] Work Phone: Start: 10-31-2023 End: 10-31-2023 Patient encounter procedure Courtney Chen MD Work Phone: [facility] Comment on above: Routine general [facility] examination [facility] (Primary Dx); Medicare annual wellness visit, subsequent; Type 2 diabetes mellitus with other specified complication, without long-term current use of insulin (CMS/HCC); Benign essential hypertension (CMS/HCC); Vitreous detachment of right eye; Pure hypercholesterolemia (CMS/HCC) Start: 10-31-2023 End: 10-31-2023 ambulatory COURTNEY Reyes GUSTAVO Not Available Start: 09-28-2023 End: 09-28-2023 ambulatory MAURICIO FRIAS Not Available Start: 09-18-2023 End: 09-18-2023 ambulatory RUGEN M GUSTAVO Not Available Start: 08-14-2023 End: 08-14-2023 ambulatory RUGEN M GUSTAVO Not Available Start: 08-02-2023 End: 08-02-2023 ambulatory MARIAN Reyes TYSON Not Available Start: 08-01-2023 End: 08-02-2023 ambulatory Dante CALIX Facility:[facility] Start: 08-01-2023 End: 08-01-2023 Patient encounter procedure Dante CALIX [facility] [place] [place] Start: 02-23-2023 End: 02-23-2023 ambulatory Sebas Locke Other [facility] Other Start: 02-23-2023 Office outpatient vi sit 15 minutes Sebas Locke [facility] Start: 02-06-2023 End: 02-06-2023 ambulatory Gerald Molina Other [facility] Other Start: 02-06-2023 Telephone encounter Gerald Molina [facility] Start: 07-13-2022 End: 07-14-[address] DANTE CALIX Facility: Start: 05-24-2022 End: 05-24-2022 ambulatory ANAHI LOZOYA . Facility: Start: 04-05-2022 End: 04-05-[address] DONNA TIJERINA Facility:[facility] Start: 02-02-2022 End: 02-02-2022 ambulatory Gerald Molina Other [employer] Other Start: 02-02-2022 Telephone encounter Gerald Medina [facility] Start: 01-06-2022 End: 01-07-[address] DOCTOR VILLASENOR Facility: Start: 01-04-2022 End: 01-04-2022 ambulatory Gerald Molina Other [employer] Other Start: 01-04-2022 Patient encounter procedure Gerald MONTAÑO [facility] Start: 12-09-2021 End: 12-09-2021 ambulatory RODGER PACK Facility:[facility] Start: 12-09-2021 End: 12-09-2021 Patient encounter procedure Rodger Pack DIGITAL PRINT OPERATOR.SHORE MAN Work Phone: Gastroenterology Comment on above: Gastroesophageal ref lux disease without esophagitis (Primary Dx) Start: 11-24-2021 End: 11-24-2021 ambulatory Gerald Molina Other [employer] Other Start: 11-24-2021 Telephone encounter Gerald Medina [facility] Start: 10-05-2021 End: 05-24-2022 Recurring COURTNEY CHEN [facility] Procedures Date Procedure Procedure Detail Performing Clinician Start: 03-18-2024 Hemoglobin glycosylated a1c Courtney Chen MD Work Phone: Start: 07-13-[address] DANTE CALIX Comment on above: Performed By: #### PSAD #### [facility] [address] [place] [address] Dr. Brooklyn Santos Start: 08-24-2020 Colonoscopy Courtney Chen MD Work Phone: Bilateral segmental vasectomy and ligation COURTNEY CHEN Esophagogastroduodenoscopy Adam CALIX Plan of Treatment Date Care Activity Detail Author Start: 08-24-2030 Screening for malign ant neoplasm of colon [facility] Start: 06-01-2026 PROSTATE CANCER SCREENING DISCUSSION PROSTATE CANCER SCREENING DISCUSSION [facility] Start: 07-27-2025 Glaucoma screening Diabetes: R etinopathy Screening [facility] Start: 10-30-2024 Medicare Annual Wellness (AWV) Medicare Annual Wellness (AWV) [facility] Start: 09-21-2024 Urine screening for protein Diabetes: Urine Protein Screening [facility] Start: 09-16-2024 End: 09-16-2024 Patient encounter procedure 09/16/2024 8:30 AM EDT Office Visit [facility] [address] [place] [address] Courtney Chen MD [address] [place] [address] [facility] Start: 06-16-2024 Hemoglobin A1c measurement Diabetes: Hemoglobin A1C [facility] Start: 04-15-2024 End: 04-15-2024 Patient encounter procedure 04/15/2024 11:30 AM EST Office Visit [facility] [address] [place] [address] Donna Tijerina PA [address] [place] [address] [facility] Start: 03-26-2024 End: 03-26-2024 Patient encounter procedure 03/26/2024 10:30 AM EST Office Visit [facility] [address] [place] [address] Donna Tijerina PA [address] [place] [address] Arrived [facility] Comment on above: Arrived Start: 12-19-2023 Hemoglobin A1c measurement Diabetes: Hemoglobin A1C [facility] Start: 11-05-2023 Influenza vaccination Influenza Vacc ine (#1) [facility] Start: 10-31-2023 End: 10-31-2023 Patient encounter procedure 10/31/2023 9:00 AM EDT Office Visit [facility] [address] [facility] [address] [place] [id number] Courtney Chen MD [address] [facility] [address] [place] [address] Arrived [facility] Comment on above: Arrived Start: 09-21-2023 Medicare Annual Wellness (AWV) Medicare Annual Wellness (AWV) [facility] Start: 09-09-2023 DIABETES SCREEN DIABETES SCREEN [facility] Start: 11-04-2021 Influenza vaccination INFLUENZA (#1) [facility] Start: 03-06-2021 ADVANCE DIRECTIVE DISCUSSION ADVANCE DIRECTIVE DISCUSSION [facility] Start: 03-06-2021 DEPRESSION ASSESSMENT DEPRESSION ASS ESSMENT [facility] Start: 02-19-2021 COVID-19 VACCINE (4 - Booster for Moderna series) COVID-19 VACCINE (4 - Booster for Moderna series) [facility] Start: 09-11-2020 PNEUMOCOCCAL: 65+ (1 - PCV) PNEUMOCOCCAL: 65+ (1 - PCV) [facility] Start: 09-11-2005 SHINGRIX VACCINE (1 of 2) SHINGRIX VACCINE (1 of 2) [facility] Start: 09-11-2000 COLOGUARD (FIT-DNA) COLOGUARD (FIT-D NA) [facility] Start: 09-11-2000 Colonoscopy COLONOSCOPY [facility] Start: 09-11-2000 COLORECTAL CANCER SCREENING COLORECTAL CANCER SCREENING [facility] Start: 09-11-[address] COLONOGRAPHY [facility] Start: 09-11-2000 FECAL OCCULT BLOOD FECAL OCCULT BLOO D [facility] Start: 09-11-2000 SIGMOIDOSCOPY SIGMOIDOSCOPY [facility] Start: 09-11-1990 LIPID SCREEN LIPID SCREEN [facility] Start: 09-11-1974 Urine microalbumin profile DTAP,TDAP,TD (1 - Tdap) [facility] Start: 09-11-1973 HEPATITIS C SCREENING HEPATITIS C SC MARGARET [facility] Start: 1955 Screening for malign ant neoplasm of colon [facility] End: 12-09-2022 EGD - THERAPEUTIC, EUS, OR TUBE INTERVENTIONS EGD - THERAPEUTIC, EUS, OR TUBE INTERVENTIONS Endoscopy Routine Gastroesophageal reflux disease without esophagitis 1 Occurrences starting 12/09/2021 until 12/09/2022 [facility] Work Phone: Comment on above: 1 Occurrences starti ng 12/09/2021 until 12/09/2022 [facility] Immunizations Immunization Date Immunization Notes Care Provider Sariah greer 01-21-2023 influenza virus vaccine, unspecified formulation Dante CALIX [facility] 01-21-2023 Influenza, Seasonal, Quadrivalent, Adjuvanted Courtney Chen MD Work Phone: [facility] 01-12-2023 SARS-COV-2 (COVID-19 ) vaccine, mRNA, spike protein, LNP, PF, 50 mcg/0.5 mL Courtney Chen MD Work Phone: [facility] 12-16-2021 influenza virus vaccine, unspecified formulation Dante CALIX [facility] 12-16-2021 Influenza, High-dose Seasonal, Quadrivalent, Preservative Free Courtney Chen MD Work Phone: [facility] 12-25-2020 SARS-CoV-2 (COVID-19 ) [id number] vaccine Dante CALIX [facility] 12-15-2020 influenza virus vaccine, unspecified formulation Dante CALIX [facility] 12-15-2020 Influenza, High-dose Seasonal, Quadrivalent, Preservative Free Courtney Chen MD Work Phone: [facility] 04-17-2020 SARS-CoV-2 (COVID-19 ) [id number] vaccine COURTNEY CHEN [facility] 04-15-2020 COVID-19 Vaccine Moderna - Documentation Purposes Only Gerald Molina Other [facility] 03-27-2020 SARS-CoV-2 (COVID-19 ) [id number] vaccine COURTNEY CHEN [facility] 03-18-2020 COVID-19 Vaccine Moderna - Documentation Purposes Only Gerald Molina Other [facility] 12-05-2019 influenza virus vaccine, unspecified formulation COURTNEY CHEN [facility] 12-03-2019 influenza virus vaccine, unspecified formulation Dante CALIX [facility] 12-03-2019 Influenza, injectabl e, Madin Anne Canine Kidney, preservative free, quadrivalent Courtney Chen MD Work Phone: [facility] 05-10-2014 tetanus toxoid, redu ambrosio diphtheria toxoid, and acellular pertussis vaccine, adsorbed Gerald Molina Other [facility] Payers Date Payer Category Payer Self-pay [id number] 2021 Unknown [id number] 2020 [facility] er [id number] 2020 Medicare [id number]. [id number] 2020 Unknown [id number]. [id number]. [id number] 1959 Medicare [id number] 1959 Medicare [id number] 1955 Unknown [id number] 2.16.840.1.063348.3.579. 2.593 1955 Unknown [id number] 2.16.840.1.541409.3.579. 2.593 1955 Unknown [id number] 2.16.840.1.203305.3.579. 2.593 1955 Unknown [id number] 2.16.840.1.228303.3.579. 2.593 1955 Unknown [id number] 2.16.840.1.083937.3.579. 2.727 1955 Unknown [id number] 2.16.840.1.655448.3.579. 2.727 1955 Unknown [id number] 2.16.840.1.657510.3.579. 2.1259 1955 Unknown [id number] 2.16.840.1.425497.3.579. 2.1259 1955 Unknown [id number] 2.16.840.1.104599.3.579. 2.1259 1955 Unknown [id number] 2.16.840.1.620925.3.579. 2.1259 1955 Unknown [id number] 2.16.840.1.139132.3.579. 2.1259 1955 Unknown [id number] 2.16.840.1.687441.3.579. 2.1259 1955 Unknown [id number] 2.16.840.1.594884.3.579. 2.1259 Blue Cross Blue Shield [id number] Medicaid [place] Advantage [id number] Medicare Medicare [id number] Unknown [place] [id number] Unknown [id number] [id number]. 2.531 Social History Date Type Detail Facility Tobacco smoking stat [facility] Tobacco smoking consumption unknown [facility] Start: 1955 Sex Assigned At Not on file C [facility] Start: 11-29-2021 End: 12-09-2021 Exposure to SARS-CoV-2 (event) Not sure [facility] Start: 02-02-2023 End: 10-31-2023 Sex Assigned At [facility] Start: 06-19-2020 End: 02-23-2023 Tobacco smoking status Never smoked tobacco (finding) [facility] Tobacco smoking status Never [facility] Start: 1955 Sex Assigned At Male [facility] Start: 09-20-2022 Tobacco use and exposure Smokeless tobacco non-user [facility] Start: 10-31-2023 End: 03-18-2024 Alcoholic beverage intake Current drinker of alcohol (finding) [facility] Start: 02-02-2023 End: 10-31-2023 Alcoholic beverage intake [facility] Start: 09-19-2022 Gender identity Identifies as male gender (finding) [facility] Start: 07-02-2024 Sex Male (finding) [facility] Medical Equipment Procedure Code Equipment Code Equipment Original Text Equi pment Identifier Dates DIRECTED MIKO Y DX E11.9 for 30 day(s) Functional Status Date Assessment Result Facility 08-01-2023 Functional Status N/A [facility] Sheryl Clinical Notes 12-09-2021 to 03-26-2024 CANDELARIA Gregorio - 03/26/2024 10:30 AM Wiliam Chen MD - 03/18/2024 8:52 AM Wiliam Chen MD - 03/18/2024 8:50 AM Wiliam Chen MD - 03/18/2024 8:44 AM EST Note Date & Type Note Facility 03-26-2024 History of Present illness Narrative Images from the original note were not included. Subjective Patient ID: Fahad Raymond is a 68 y.o. male who presents for wound on back. Fahad is present today for evaluation of wound on back. Admits at last o/v with Dr. Chne he had what Dr. Chen believed was an infection beside his scar he has on his back. He had a cyst removed in 2023 and then in February started feeling a small lump next to the scar, still feels like there is a small lump there. Dr. Chen advised him to use bacitracin on it and it does look to be improved. He does have a picture of what it looked like on his phone when he came in last week with Dr. Chen. Has mild pain, the pain is not as bad as it was previously. Current Outpatient Medications on File Prior to Visit Medication Sig Dispense Refill atorvastatin (Lipitor) 40 MG tablet TAKE 1 TABLET BY MOUTH EVERY DAY 90 tablet 4 cyanocobalamin (Vitamin B-12) 1000 MCG tablet 1 (one) time each day at the same time. Folic Acid 0.8 MG capsule Take 1 capsule by mouth in the morning. FREESTYLE LITE test strip DIRECTED DAILY DX E11.9 for 30 day(s) gabapentin (Neurontin) 100 MG capsule TAKE 1 CAPSULE THREE TIMES A DAY 270 capsule 3 lisinopril-hydroCHLOROthiazide 10-12.5 MG tablet TAKE ONE-HALF (1/2) TABLET IN THE MORNING 45 tablet 3 pantoprazole (ProtoNix) 40 MG EC tablet Take one tablet daily. Do not crush, chew, or split. SITagliptin (Januvia) 100 MG tablet Take 1 tablet (100 mg) by mouth Daily 100 tablet 3 tamsulosin (Flomax) 0.4 MG 24 hr capsule Take 0.8 mg by mouth in the morning. [DISCONTINUED] SITagliptin (Januvia) 100 MG tablet Take 1 tablet (100 mg) by mouth Daily 360 tablet 0 No current facility-administered medications on file prior to visit. I have reviewed and reconciled the history and medication list with the patient today. Allergies Allergen Reactions Prednisone Other Reaction(s): gerd, GERD - Gastro-esophageal reflux disease, GI Upset Social History Tobacco Use Smoking status: Never Smokeless tobacco: Never Vaping Use Vaping status: Never Used Substance Use Topics Alcohol use: Yes Alcohol/week: 1.0 standard drink of alcohol Types: 1 Cans of beer per week Drug use: Never Family History Problem Relation Name Age of Onset Liver disease Other Family Hx Colon cancer Other Family Hx Irritable bowel syndrome Other Family Hx Other (Other) Other Family Hx Diverticular disease Heart disease Mother Polina Heart disease Father Son Past Medical History: Diagnosis Date Diabetes mellitus (CMS/HCC) Gastric polyp 2012 Gastritis 08/24/2020 GERD (gastroesophageal reflux disease) 2012 Hepatic vein stenosis 07/24/2020 Hx of HIDA scan 08/12/2020 normal Hx of magnetic resonance imaging 01/24/2018 wrist; negative result Hypertension (CMS/HCC) Seizure disorder (CMS/HCC) Vitreous detachment of right eye Past Surgical History: Procedure Laterality Date CARDIAC CATHETERIZATION 08/19/2015 Dr. Lizarraga minimal plaque COLONOSCOPY 08/24/2020 Normal COLONOSCOPY W/ BIOPSIES 2013 CYSTOSCOPY 12/2019 Dr. Calix EGD 2012 Disease: Gastric Polyp, GERD EGD 08/24/2020 Possible gastritis; Dr. Cooper at [facility] 1973 Visit Vitals BP 128/80 Pulse 63 Resp 16 Ht 5' 7 Wt 171 lb 12.8 oz SpO2 99% BMI 26.91 kg/m Smoking Status Never BSA 1.92 m Review of Systems Constitutional: Negative for chills, fatigue and fever. Respiratory: Negative for cough, shortness of breath and wheezing. Cardiovascular: Negative for chest pain, palpitations and leg swelling. Gastrointestinal: Negative for abdominal pain, constipation, diarrhea, nausea and vomiting. Skin: Negative for rash. See HPI Objective Physical Exam Constitutional: General: He is not in acute distress. Appearance: Normal appearance. HENT: Head: Normocephalic and atraumatic. Eyes: General: No scleral icterus. Cardiovascular: Rate and Rhythm: Normal rate and regular rhythm. Heart sounds: No murmur heard. Pulmonary: Effort: Pulmonary effort is normal. No respiratory distress. Breath sounds: Normal breath sounds. No wheezing, rhonchi or rales. Musculoskeletal: General: No swelling. Skin: General: Skin is warm and dry. Comments: Healing surgical scar on back. No signs of infection at this time. Minimal prominence under skin surface along superior aspect of scar. There is a small grayish colored marge underneath the scar in this area. Possibly a small piece of retained suture. See photo Neurological: General: No focal deficit present. Mental Status: He is alert and oriented to person, place, and time. Psychiatric: Mood and Affect: Mood normal. Behavior: Behavior normal. Assessment/Plan Diagnoses and all orders for this visit: Painful scar Discussed with pt. Advised does not appear infected at this time. No antibiotics indicated at this time. Discussed the possibility of a small piece of retained dissolvable suture. Advised pt that his body should either continue to break it down and it will resolve on its own, or it will work its way to the skin's surface. Reviewed s/s of infection and reasons to contact office. Otherwise will have him return to the office in two weeks for a recheck. If discomfort resolves before his follow up, he can cancel the appointment. Follow up in about 2 weeks (around 04/09/2024) for Recheck. documented in this encounter [facility] 03-18-2024 History of Present illness Narrative Associated Problem(s): Hyperlipidemia, unspecified (CMS/HCC) This is a chronic medical condition that is stable since last assessment. No changes in treatment are suggested at this time. Continue Current meds. Associated Problem(s): Seizure disorder (CMS/HCC) No neurologist in awhile No seizures in 30 years Associated Problem(s): Type 2 diabetes mellitus (CMS/HCC) No Tobacco use Follow ADA 1800 diet low carbohydrate Continue Med Compliance Goal LDL less than 100 Goal BP 130/80 Goal HgbA1c < 7.0% Monitor Feet, monitor for infection Needs Exercise Yearly eye exams Prior to your visit today we reviewed your chart and outlined testing and treatment needed for your care. Reviewed poissble complications of diabetes including, loss of vision, kidney failure and increased risk of heart attacks and stroke. We made recommendations on how to control your blood sugars, and minimize your risk of these complications. We discussed your current barriers to a healthy living and importance of healthy diet and exercise. Images from the original note were not included. HPI Diabetes Additional comments: Last A1c was 6.7 Last edited by Gemma Camarena MA on 03/18/2024 7:26 AM. Subjective Patient ID: Fahad Raymond is a 68 y.o. male who presents for Diabetes (Last A1c was 6.7). Pt has not been checking sugar Been coughing complaining of head congestion for a couple of weeks 8 Grandkids Diabetes He presents for his follow-up diabetic visit. He has type 2 diabetes mellitus. The initial diagnosis of diabetes was made 3 years ago. His disease course has been stable. There are no hypoglycemic associated symptoms. Pertinent negatives for hypoglycemia include no confusion, dizziness, headaches, nervousness/anxiousness or sleepiness. There are no diabetic associated symptoms. Pertinent negatives for diabetes include no chest pain. Pertinent negatives for hypoglycemia complications include no blackouts, no hospitalization, no required assistance and no required glucagon injection. Symptoms are stable. There are no diabetic complications. Risk factors for coronary artery disease include diabetes mellitus, hypertension, male sex and dyslipidemia. Current diabetic treatment includes oral agent (monotherapy). His weight is stable. He is following a diabetic diet. Meal planning includes avoidance of concentrated sweets. He participates in exercise three times a week. An FORTUNATO inhibitor/angiotensin II receptor brenda is being taken. He does not see a application development director.Eye exam is current. Current Outpatient Medications on File Prior to Visit Medication Sig Dispense Refill atorvastatin (Lipitor) 40 MG tablet TAKE 1 TABLET BY MOUTH EVERY DAY 90 tablet 4 cyanocobalamin (Vitamin B-12) 1000 MCG tablet 1 (one) time each day at the same time. Folic Acid 0.8 MG capsule Take 1 capsule by mouth in the morning. FREESTYLE LITE test strip DIRECTED DAILY DX E11.9 for 30 day(s) gabapentin (Neurontin) 100 MG capsule TAKE 1 CAPSULE THREE TIMES A DAY 270 capsule 3 lisinopril-hydroCHLOROthiazide 10-12.5 MG tablet TAKE ONE-HALF (1/2) TABLET IN THE MORNING 45 tablet 3 pantoprazole (ProtoNix) 40 MG EC tablet Take one tablet daily. Do not crush, chew, or split. tamsulosin (Flomax) 0.4 MG 24 hr capsule Take 0.8 mg by mouth in the morning. [DISCONTINUED] Januvia 100 MG tablet TAKE 1 TABLET BY MOUTH EVERY DAY 90 tablet 3 No current facility-administered medications on file prior to visit. I have reviewed and reconciled the history and medication list with the patient today. Allergies Allergen Reactions Prednisone Other Reaction(s): gerd, GERD - Gastro-esophageal reflux disease, GI Upset Social History Tobacco Use Smoking status: Never Smokeless tobacco: Never Substance Use Topics Alcohol use: Yes Alcohol/week: 1.0 standard drink of alcohol Types: 1 Cans of beer per week Drug use: Never Family History Problem Relation Name Age of Onset Liver disease Other Family Hx Colon cancer Other Family Hx Irritable bowel syndrome Other Family Hx Other (Other) Other Family Hx Diverticular disease Heart disease Mother Polina Heart disease Father Son Past Medical History: Diagnosis Date Diabetes mellitus (CMS/HCC) Gastric polyp 2013 Gastritis 08/24/2020 GERD (gastroesophageal reflux disease) 2012 Hepatic vein stenosis 07/24/2020 Hx of HIDA scan 08/12/2020 normal Hx of magnetic resonance imaging 01/24/2018 wrist; negative result Hypertension (CMS/HCC) Seizure disorder (CMS/HCC) Vitreous detachment of right eye Past Surgical History: Procedure Laterality Date CARDIAC CATHETERIZATION 08/19/2015 Dr. Lizarraga minimal plaque COLONOSCOPY 08/24/2020 Normal COLONOSCOPY W/ BIOPSIES 2013 CYSTOSCOPY 12/2019 Dr. Calix EGD 2012 Disease: Gastric Polyp, GERD EGD 08/24/2020 Possible gastritis; Dr. Cooper at [facility] [place] Visit Vitals BP 122/78 Pulse 69 Ht 5' 7 Wt 169 lb SpO2 98% BMI 26.47 kg/m Smoking Status Never BSA 1.9 m Review of Systems Constitutional: Negative for chills and fever. Respiratory: Negative for shortness of breath. Cardiovascular: Negative for chest pain. Gastrointestinal: Negative for constipation, diarrhea, nausea and vomiting. Musculoskeletal: Negative for back pain and gait problem. Neurological: Negative. Negative for dizziness, facial asymmetry and headaches. Psychiatric/Behavioral: Negative for confusion. The patient is not nervous/anxious. Objective Physical Exam Vitals reviewed. Constitutional: Appearance: Normal appearance. HENT: Head: Normocephalic. Neck: Vascular: No carotid bruit. Cardiovascular: Rate and Rhythm: Normal rate and regular rhythm. Pulses: Normal pulses. Pulmonary: Effort: Pulmonary effort is normal. Breath sounds: Normal breath sounds. Neurological: General: No focal deficit present. Mental Status: He is alert and oriented to person, place, and time. Psychiatric: Mood and Affect: Mood normal. Assessment/Plan Problem List Items Addressed This Visit Seizure disorder (CMS/HCC) - Primary No neurologist in awhile No seizures in 30 years Type 2 diabetes mellitus (CMS/HCC) No Tobacco use Follow ADA 1800 diet low carbohydrate Continue Med Compliance Goal LDL less than 100 Goal BP 130/80 Goal HgbA1c < 7.0% Monitor Feet, monitor for infection Needs Exercise Yearly eye exams Prior to your visit today we reviewed your chart and outlined testing and treatment needed for your care. Reviewed poissble complications of diabetes including, loss of vision, kidney failure and increased risk of heart attacks and stroke. We made recommendations on how to control your blood sugars, and minimize your risk of these complications. We discussed your current barriers to a healthy living and importance of healthy diet and exercise. Relevant Orders POCT Glycated hemoglobin, total (Completed) Hyperlipidemia, unspecified (CMS/HCC) This is a chronic medical condition that is stable since last assessment. No changes in treatment are suggested at this time. Continue Current meds. Other Visit Diagnoses Epilepsy, unspecified, not intractable, without status epilepticus (CMS/HCC) Unspecified convulsions (CMS/HCC) Type 2 diabetes mellitus without complications (CMS/HCC) Relevant Medications SITagliptin (Januvia) 100 MG tablet Follow up in about 6 months (around 09/15/2024). documented in this encounter [facility] 10-31-2023 History of Present illness Narrative Associated Problem(s): Vitreous detachment of right eye F/up treasury specialist No current treatments Associated Problem(s): Hyperlipidemia, unspecified (CMS/HCC) This is a chronic medical condition that is stable since last assessment. No changes in treatment are suggested at this time. Continue Current meds. Associated Problem(s): Benign essential hypertension (CMS/HCC) Our specific goals, for your hypertension, is to keep your blood pressure less than 140/90, and the importance of weight control. We made recommendations on how to control your blood pressure, and minimize your risk of these copmplications. We also discussed your current barriers to a healthy living and importance of healthy diet and exercise. Prior to your visit today we have reviewed your chart and formed a plan to assist with providing you the best possible care. We reviewed the possible complications of hypertension including, stroke, heart failure and kidney impairment. In addition, we discussed your medications, the importance of taking them as prescribed. DASH diet handouts Associated Problem(s): Type 2 diabetes mellitus with other specified complication ([facility]/HCC) No Tobacco use Follow ADA 1800 diet low carbohydrate Continue Med Compliance Goal LDL less than 100 Goal BP 130/80 Goal HgbA1c < 7.0% Monitor Feet, monitor for infection Needs Exercise Yearly eye exams Prior to your visit today we reviewed your chart and outlined testing and treatment needed for your care. Reviewed poissble complications of diabetes including, loss of vision, kidney failure and increased risk of heart attacks and stroke. We made recommendations on how to control your blood sugars, and minimize your risk of these complications. We discussed your current barriers to a healthy living and importance of healthy diet and exercise. Associated Problem(s): Medicare annual wellness visit, subsequent Colonoscopy every 10 years or Cologuard every 3 years ages 50-75 Flu Vaccine yearly Pneumovax and Prevnar Mammo yearly for women and PSA yearly for men Labs/Screening yearly to rule out Diabetes, Chronic Kidney disease and liver disease Hepatitis Screen forat risk populations Shingles vaccine after 65 if indicated Tetanus Vaccine every 10 years Lipids yearly under the age of 75 If Smoking history: one time CT scan of chest and Ultrasound of Aorta to screen for Anuerysm Images from the original note were not included. Subjective : Chief Complaint: Honey Raymond is an 68 y.o. male here for an annual wellness visit. Has Peripheral detachment I have reviewed and reconciled the history and medication list with the patient today. Current Outpatient Medications Medication Sig Dispense Refill atorvastatin (Lipitor) 40 MG tablet TAKE 1 TABLET BY MOUTH EVERY DAY 90 tablet 4 cyanocobalamin (Vitamin B-12) 1000 MCG tablet 1 (one) time each day at the same time. Folic Acid 0.8 MG capsule Take 1 capsule by mouth in the morning. FREESTYLE LITE test strip DIRECTED DAILY DX E11.9 for 30 day(s) gabapentin (Neurontin) 100 MG capsule TAKE 1 CAPSULE THREE TIMES A DAY 300 capsule 3 Januvia 100 MG tablet TAKE 1 TABLET BY MOUTH EVERY DAY 90 tablet 3 lisinopril-hydroCHLOROthiazide 10-12.5 MG tablet Take 0.5 tablets by mouth in the morning. 45 tablet 3 pantoprazole (ProtoNix) 40 MG EC tablet Take one tablet daily. Do not crush, chew, or split. tamsulosin (Flomax) 0.4 MG 24 hr capsule Take 0.8 mg by mouth in the morning. No current facility-administered medications for this visit. Review of Systems Constitutional: Negative for chills and fever. HENT: Flashes of light for a second, when moves eye quickly Eyes: Positive for visual disturbance. Respiratory: Negative for chest tightness. Cardiovascular: Negative for chest pain. Genitourinary: Negative for dysuria. Musculoskeletal: Negative for joint swelling. List of current healthcare providers: Patient Care Team: Courtney Chen MD as PCP - General Courtney Chen MD as PCP - [facility] [employer] Medicare Annual Visit Over the past 2 weeks, how often have you been bothered by any of the following problems? Little interest or pleasure in doing things: Not at all Feeling down, depressed, or hopeless: Not at all Patient Health Questionnaire-2 Score: 0 [place] Fall Risk History of Falling, Immediate or Within 3 Months: No Health Risk Assessment Form Do you need help eating, bathing, using the toilet, dressing, or getting around your home?: No Can you prepare your own meals?: Yes Can you do your own housework without help?: Yes Can you shop for groceries or clothes without help?: Yes Do you exercise for about 20 minutes 3 or more days a week?: Yes How confident are you that you can control and manage most of your health problems?: Very confident Can you mange your money, credit cards and accounts, pay bills and taxes?: Yes Vision Screening: Yes, no gross abnormalities Hearing Screening: Yes, no gross abnormalities Cognitive Screening Self Assessment: No overt cognitive deficiency is apparent by direct observation Three Word Registration: Banana, [place], Chair Clock Drawing: Normal Clock - 2 Three Word Recall: 1/3 words correct - 1 Total Score (0-5 Points): 3 Pain Assessment Pain Score: 0 - No pain Advance Care Planning Do you have a living will?: Yes Do you have a medical power of attorney at law?: Yes Objective : BP 118/78 Pulse 57 Ht 5' 7 Wt 169 lb SpO2 97% BMI 26.47 kg/m No results found. Physical Exam Vitals reviewed. Constitutional: Appearance: Normal appearance. HENT: Head: Normocephalic. Neck: Vascular: No carotid bruit. Cardiovascular: Rate and Rhythm: Normal rate and regular rhythm. Pulses: Normal pulses. Pulmonary: Effort: Pulmonary effort is normal. Breath sounds: Normal breath sounds. Neurological: General: No focal deficit present. Mental Status: He is alert and oriented to person, place, and time. Psychiatric: Mood and Affect: Mood normal. Assessment/Plan : The following health maintenance schedule was reviewed with the patient and provided in printed form in the after visit summary: Health Maintenance Topic Date Due Medicare Annual Wellness (AWV) 09/21/2023 Influenza Vaccine (1) 11/05/2023 Diabetes: Hemoglobin A1C 12/19/2023 Diabetes: Urine Protein Screening 09/21/2024 Diabetes: Retinopathy Screening 07/27/2025 Colorectal Cancer Screening 08/24/2030 Pneumococcal Vaccine: 65+ Years Discontinued Advance Care Planning .Assessment/Plan Problem List Items Addressed This Visit Hyperlipidemia, unspecified (CMS/HCC) This is a chronic medical condition that is stable since last assessment. No changes in treatment are suggested at this time. Continue Current meds. Type 2 diabetes mellitus with other specified complication (CMS/HCC) No Tobacco use Follow ADA 1800 diet low carbohydrate Continue Med Compliance Goal LDL less than 100 Goal BP 130/80 Goal HgbA1c < 7.0% Monitor Feet, monitor for infection Needs Exercise Yearly eye exams Prior to your visit today we reviewed your chart and outlined testing and treatment needed for your care. Reviewed poissble complications of diabetes including, loss of vision, kidney failure and increased risk of heart attacks and stroke. We made recommendations on how to control your blood sugars, and minimize your risk of these complications. We discussed your current barriers to a healthy living and importance of healthy diet and exercise. Benign essential hypertension (CMS/HCC) Our specific goals, for your hypertension, is to keep your blood pressure less than 140/90, and the importance of weight control. We made recommendations on how to control your blood pressure, and minimize your risk of these copmplications. We also discussed your current barriers to a healthy living and importance of healthy diet and exercise. Prior to your visit today we have reviewed your chart and formed a plan to assist with providing you the best possible care. We reviewed the possible complications of hypertension including, stroke, heart failure and kidney impairment. In addition, we discussed your medications, the importance of taking them as prescribed. DASH diet handouts Medicare annual wellness visit, subsequent Colonoscopy every 10 years or Cologuard every 3 years ages 50-75 Flu Vaccine yearly Pneumovax and Prevnar Mammo yearly for women and PSA yearly for men Labs/Screening yearly to rule out Diabetes, Chronic Kidney disease and liver disease Hepatitis Screen forat risk populations Shingles vaccine after 65 if indicated Tetanus Vaccine every 10 years Lipids yearly under the age of 75 If Smoking history: one time CT scan of chest and Ultrasound of Aorta to screen for Anuerysm Vitreous detachment of right eye F/up treasury specialist No current treatments Other Visit Diagnoses Routine general medical examination at health care facility - Primary No orders of the defined types were placed in this encounter. Electronically signed by Courtney Chen MD on October 31, 2023 documented in this encounter [facility] 08-01-2023 Hospital Discharge instructions Patient Education 08/01/2023 [...] urethra. Follow these instructions at home: Take [id number] and prescription medicines only as told by [...] provider. Document Revised: 09/08/2021 Document Reviewed: 09/08/2021 [employer] Patient Education 2022 [employer]. Follow Up Care 07/25/2022 09:24:49 With:FIFI MCGUIRE, Dante Hodge, URL Address: [address] [place], [place] [id number]- When: Unknown [facility] Sheryl 02-23-2023 Evaluation note Encounter Date Diagnosis Assessment [...] to go back to twice a day [facility] Other 11-01-2022 Evaluation note* Encounter Date Diagnosis Assessment Notes Treatment Notes Treatment Clinical Notes Jan, GERD (gastroesophageal reflux disease) (ICD-10 - K21.9) CONTINUE PANTOPRAZOLE DIRECTED Jan, Epigastric pain (ICD-10 - R10.13) Jan, Dyspepsia (ICD-10 - K30) Jan, Vomiting (ICD-10 - R11.10) [facility] Other 10-06-2022 History and physical note* Rodger Granaods APRN.SHORE MAN - 12/09/2021 3:30 PM EDT Self Referral [...] he has already had work-up completed at [facility]. He is currently mg of Protonix twice daily without relief of his symptoms. He underwent an EGD on 08/24/2020 thatwas unremarkable. He also underwent a right upper quadrant ultrasound that revealed a fatty liver. HIDA scan was also completed that was normal. Past Clinical Work-Up: EGD [facility] 08/24/20: Negative pathology ALLERGIES Allergen [...] he has already had work-up completed at [facility]. He is currently taking 40 mg of [...] TUBE INTERVENTIONS This note was dictated using [employer] speech recognition software and may contain some errors that were a result of the program not accurately transcribing what was dictated. Rodger Granados APRN.CNP [facility] Instructions* Patient Instructions* Rodger Granados APRN.CNP - [...] to call the officeor send me a [employer]ulu[employer] message. [facility] Plan note Future Appointments Appointment Date:07/01/2022 08:00:00 AM Scheduled Provider[facility] Future Appointments Appointment Date:07/30/2024 08:00:00 AM Scheduled Provider:Dante CALIX MD Location:[facility] Appointment Type:URO Office Visit Diagnostic Tests Pending * PSA Total 06/04/24 [facility] Evaluation note* Diagnosis Gastroesophageal reflux disease without esophagitis- Primary Esophageal reflux documented in this encounter [facility] Other Evaluation noteNo assessment information available [facility] Work Phone: Evaluation note* Diagnosis Routine general medical examination at health care facility- Primary Routine general medical examination at a health care facility Medicare annual wellness visit, subsequent Type 2 diabetes mellitus with other specified complication, without long-term current use of insulin (CMS/HCC) Benign essential hypertension (CMS/HCC) Essential hypertension, benign Vitreous detachment of right eye Pure hypercholesterolemia (CMS/HCC) Pure hypercholesterolemia documented in this encounter [facility] Healthcare[facility]* Diagnosis Low HDL (under 40) (CMS/HCC)- Primary Gastroesophageal reflux disease without esophagitis Esophageal reflux Impaired fasting glucose Type 2 diabetes mellitus without complication, without long-term current use of insulin (CMS/HCC) Seizure disorder (CMS/HCC) Unspecified epilepsy without mention of intractable epilepsy Benign prostatic hyperplasia with lower urinary tract symptoms, symptom details unspecified Abnormal glucose tolerance test Impaired glucose tolerance test Benign essential hypertension (CMS/HCC) Essential hypertension, benign Lipoprotein deficiency disorder (CMS/HCC) Lipoprotein deficiencies Type 2 diabetes mellitus with other specified complication, without long-term current use of insulin (CMS/HCC) Medicare annual wellness visit, subsequent Screening for lipid disorders Hyperlipidemia, unspecified (CMS/HCC) Type 2 diabetes mellitus with other specified complication (CMS/HCC) Routine general medical examination at health care facility- Primary Routine general medical examination at a health care facility Medicare annual wellness visit, subsequent Type 2 diabetes mellitus with other specified complication, without long-term current use of insulin (CMS/HCC) Benign essential hypertension (CMS/HCC) Essential hypertension, benign Vitreous detachment of right eye Pure hypercholesterolemia (CMS/HCC) Pure hypercholesterolemia Seizure disorder (CMS/HCC)- Primary Unspecified epilepsy without mention of intractable epilepsy Type 2 diabetes mellitus with other specified complication, without long-term current use of insulin (CMS/HCC) Hyperlipidemia, unspecified (CMS/HCC) Epilepsy, unspecified, not intractable, without status epilepticus (CMS/HCC) Unspecified convulsions (CMS/HCC) Type 2 diabetes mellitus without complications (CMS/HCC) documented in this encounter [facility] HealthcareEvaluation [facility]* Diagnosis Low HDL (under 40) (CMS/HCC)- Primary Gastroesophageal reflux disease without esophagitis Esophageal reflux Impaired fasting glucose Type 2 diabetes mellitus without complication, without long-term current use of insulin (CMS/HCC) Seizure disorder (CMS/HCC) Unspecified epilepsy without mention of intractable epilepsy Benign prostatic hyperplasia with lower urinary tract symptoms, symptom details unspecified Abnormal glucose tolerance test Impaired glucose tolerance test Benign essential hypertension ([facility]/HCC) Essential hypertension, benign Lipoprotein deficiency disorder ([facility]) Lipoprotein deficiencies Type 2 diabetes mellitus with other specified complication, without long-term current use of insulin ([facility]) Medicare annual wellness visit, subsequent Screening for lipid disorders Hyperlipidemia, unspecified ([facility]) Type 2 diabetes mellitus with other specified complication ([facility]) Routine general medical examination at [facility] care facility- Primary Routine general medical examination at a [facility] care facility Medicare annual wellness visit, subsequent Type 2 diabetes mellitus with other specified complication, without long-term current use of insulin ([facility]) Benign essential hypertension ([facility]) Essential hypertension, benign Vitreous detachment of right eye Pure hypercholesterolemia ([facility]) Pure hypercholesterolemia Seizure disorder ([facility])- Primary Unspecified epilepsy without mention of intractable epilepsy Type 2 diabetes mellitus with other specified complication, without long-term current use of insulin ([facility]) Hyperlipidemia, unspecified ([facility]) Epilepsy, unspecified, not intractable, without status epilepticus ([facility]) Unspecified convulsions ([facility]) Type 2 diabetes mellitus without complications ([facility]) Painful scar- Primary Scar condition and fibrosis of skin documented in this encounter [facility]* Diagnosis Onset Date Resolution Status Admit Date Chronic GERD acute July 02, 2024 10:19am Constipation acute July 02, 2024 10:19am Fatty liver acute July 02, 2 025 10:19am [facility] Work Phone: History general Narrative - Reported* Type Description Date Medical History HTN (hypertension) Medical History Seizure Medical History Type II diabetes mellitus Medical History GERD (gastroesophageal reflux di sease) Surgical History tonsillectomy Surgical History hernia Surgical History colonoscopy Surgical History EGD Hospitalization History skull fracture from [facility] Other Hospital course Narrative No data available for this section [facility] No data available for this section [facility] No data available for this section [facility] for referral (narrative)* Outpatient Procedure (Routine) - Authorized Specialty Diagnoses / Procedures Referred By Pankaj t Referred To Contact [facility] Diagnoses Gastroesophageal reflux disease without esophagitis Procedures EGD - THERAPEUTIC, EUS, OR TUBE INTERVENTIONS ESOPHAGOGASTRODUODENOSC OPY TRANSORAL DIAGNOSTIC Rodger Granados APRN.CNP [address] [place] [address] [facility] [address] [place] [address] Referral ID Status Reason Start Date Expiration Date Visits Requested Visits Authorized [id number] Authorized Auto-Generat ed Referral 12/09/2021 12/09/2022 1 1 [facility] Summary Purpose Family History Relationship Condition Age at Onset Recorded Date/T shekhar father Heart disease Unknown Aortic aneurysm Unknown mother Heart disease Unknown Guillain-[place] syndrome Unknown father History of malignant neoplasm of prostate Unknown Hypertension Unknown Malignant neoplasm Unknown mother Hypertension Unknown Advance Directives Advance Directive Response Recorded Date/ Time Advance Directives No August 20 12:04pm Chief Complaint and Reason for Visit Chief Complaint Admit Date 1 YR VISIT July 02, 2024 10: 19am Reason for Visit Admit Date Chronic GERD July 02, 2024 10: 19am Constipation July 02, 2024 10: 19am Fatty liver July 02, 2024 10: 19am Additional Source Comments (unrecognized sect ion and content) No Status Records FoundNo Status Records FoundNo Status Records FoundNo Status Records FoundNo Status Records FoundNo Status Records Found INFORMATION SOURCE (unrecogn ized section and content) DATE CREATED AUTHOR 03/12/2021 [facility] dical Specialist DATE CREATED AUTHOR AUTHOR'S ORGANIZ ATION 12/10/2021 [facility] DATE CREATED AUTHOR AUTHOR'S ORGANIZ ATION 07/17/2022 [facility] DATE CREATED AUTHOR AUTHOR'S ORGANIZ ATION 08/02/2023 [facility] DATE CREATED AUTHOR AUTHOR'S ORGANIZ ATION 01/10/2024 [facility] DATE CREATED AUTHOR AUTHOR'S ORGANIZ ATION 03/27/2024 [facility] Specialists EPIC Source Comments (unrecognize d section and content) In the event this informatio n is protected by the Federal Confidentiality of Alcohol and Drug Abuse Patient Records regulations: The Federal rules restrict any use of the information to criminally investigate or prosecute any alcohol or drug abuse patient.[facility] Reason for Visit (unrecogniz ed section and content) Reason Comments New Patient GERD Reason Comments Medicare Annual Wellness Visit Subsequen t Reason Comments Diabetes Last A1c was 6.7 Patient Care team informatio n (unrecognized section and content) Team Status: Inactive Member Role Status Dates Dante Lew MD Attending Provider Active Start: December 20, 2023 End: December 20, 2023 Rehab Physician Relationship Specialty Start Date End Date Courtney Chen MD [address] [facility] [address] [place] [address] PCP - ACO Reach 07/28/22 Courtney Chen MD [address] [facility] [address] [place] [address] PCP - General 09/19/22 Rehab Physician Relationship Specialty Start Date End Date Courtney Chen MD [address] [facility] [address] [place] [address] PCP - ACO Reach 07/28/22 Courtney Chen MD [address] [facility] [address] [place] [address] PCP - General 09/19/22 Rehab Physician Relationship Specialty Start Date End Date Courtney Chen MD [address] [facility] [address] [place] [address] PCP - ACO Reach 07/28/22 Courtney Chen MD [address] [facility] [address] [place] [address] PCP - General 09/19/22 Rehab Physician Relationship Specialty Start Date End Date Courtney Chen MD [address] [facility] [address] [place] [address] PCP - ACO Reach 07/28/22 Courtney Chen MD [address] [facility] [address] [place] [address] PCP - General 09/19/22 Rehab Physician Relationship Specialty Start Date End Date Courtney Chen MD [address] [facility] [address] [place] [address] PCP - ACO Reach 07/28/22 Courtney Chen MD [address] [facility] [address] [place] [address] PCP - General 09/19/22 Team Status: Active Member Role Status Dates NON STAFF Primary Care Provider Active Team Status: Inactive Member Role Status Dates Sebas Locke , D[employer]ITAL PRINT OPERATOR Attending Provider Active Start: July 02, 2024 End: July 02, 2024 NON STAFF Primary Care Provider Active Start: July 02, 2024 End: July 02, 2024 Goals (unrecognized section and content) Goals may be documented in a n alternate section FOR RECORDS PERTAINING TO PATIENTS WHO ARE [...] BE BASED ON THE PRIMARY CLINICAL RECORDS. [facility] [facility]. provides no warranty or guarantee of the accuracy or completeness of information in this document.
[2024-07-19 10:34] LABS: Prostate Specific Antigen Dx 1.49 ng/mL (<=4.00)
== END 2024-07-19 08:40 | disposition home or self-care (01) ==
LOC: LAB 08:41
PROVIDERS: PCP Family Medicine; Visit Provider Urology
DX: N40.1 Benign prostatic hyperplasia with lower urinary tract symptoms (principal)
CPT/HCPCS: 84153